=== PATIENT | female | born 1935 | race Caucasian/White ===

== ENCOUNTER → 2016-10-03 | Outpatient (CLI) | payer MEDICARE, BC ==
[~2016-10-03] MED LIST: ACET325S8 PO; ALIG4CAP PO; ATEN1TAB73 PO; ATEN25TA PO; CALC0.25 PO; CALC600T34 PO; COUM5TAB PO; FURO20 PO; FURO20TA PO; HYDR-3533 PO; LEVO100T4 PO; LEVO112T2 PO; LISI-363 PO; LISI-515 PO; MIRA0.5T PO; OMEG100037 PO; OMEP20TA PO; OMEP40CA2 PO; ONETAB13 PO; PERI8.6T PO; POTA-53 PO; POTA1TAB PO; ULTR50TA PO; WARF7.5 PO; ZOCO80TA PO; [UNRECOGNIZED DRUG - OTHER] PO
[2016-10-03 09:14] LABS: HEMATOCRIT 41.5 % (35.0-46.0); MEAN CELL VOLUME 91.6 FL (80.0-100.0); MEAN CORPUSCULAR HEMOGLOBIN 30.3 PG (27.0-34.0); PLATELET COUNT 214 TH/MM3 (150-450); RED BLOOD COUNT 4.53 MIL/MM3 (4.00-5.30); RED CELL DISTRIBUTION WIDTH 13.7 % (11.6-17.2); REVIEW FLAG FINAL; WHITE BLOOD COUNT 5.8 TH/MM3 (4.0-11.0)
[2016-10-03 09:46] LABS: POTASSIUM 4.2 MEQ/L (3.5-5.1)
== END ==
LOC: PLAB 07:43
PROVIDERS: ATTEND Internal Medicine Cardiovascular Disease
DX: E78.5 Hyperlipidemia, unspecified (principal)
CPT/HCPCS: 36415; 80048; 85027

== ENCOUNTER → 2016-10-14 | Outpatient (CLI) | payer MEDICARE, BC ==
[2016-10-14 09:48] LABS: INTERNATIONAL NORMALIZED RATIO 3.2 RATIO; PROTHROMBIN TIME - PATIENT 36.7 SEC (9.8-11.6)
== END ==
LOC: PLAB 08-16 07:04
PROVIDERS: ATTEND Family Medicine
DX: I48.91 Unspecified atrial fibrillation (principal)
CPT/HCPCS: 36415; 85610

== ENCOUNTER → 2016-10-26 | Outpatient (CLI) | payer MEDICARE, BC ==
[2016-10-26 13:32] LABS: AUTOMATED NEUTROPHIL # 2.8 TH/MM3 (1.8-7.7); BASOPHIL # 0.1 TH/MM3 (0-0.2); BASOPHIL % 1.2 % (0.0-2.0); EOSINOPHIL # 0.1 TH/MM3 (0-0.4); EOSINOPHIL % 1.8 % (0.0-4.0); HEMATOCRIT 40.9 % (35.0-46.0); HEMO FLAGS DIFF FINAL; LYMPH % 41.9 % (9.0-44.0); LYMPHOCYTE # 2.5 TH/MM3 (1.0-4.8); MEAN CELL VOLUME 91.5 FL (80.0-100.0); MEAN CORPUSCULAR HEMOGLOBIN 31.1 PG (27.0-34.0); MEAN CORPUSCULAR HGB CONC 33.9 % (32.0-36.0); MONO % 8.4 % (0.0-8.0); NEUT % 46.7 % (16.0-70.0); PLATELET COUNT 265 TH/MM3 (150-450); RED BLOOD COUNT 4.47 MIL/MM3 (4.00-5.30); RED CELL DISTRIBUTION WIDTH 13.4 % (11.6-17.2)
== END ==
LOC: PLAB 07:49
PROVIDERS: ATTEND Family Medicine
DX: D64.9 Anemia, unspecified (principal)
CPT/HCPCS: 36415; 85025

== ENCOUNTER 2017-02-13 10:03 | Emergency (ER) | payer MEDICARE, BC ==
[~2017-02-13] VITALS: Ht 162.6 cm; Wt 116.0 kg
[~2017-02-13 10:03] MED LIST changes: -ATEN25TA PO; -FURO20TA PO; -HYDR-3533 PO; -LEVO112T2 PO; -LISI-515 PO; -OMEP20TA PO; -POTA-53 PO; -[UNRECOGNIZED DRUG - OTHER] PO
[2017-02-13 10:13] VITALS: BP 151/94; PULSE 70; RESP 17; TEMP 98.9; O2SAT 98
[2017-02-13] MEDS ORDERED: ALIG4CAP PO (10:25)
[2017-02-13] MEDS ORDERED: LISI-515 PO (10:25)
[2017-02-13] MEDS ORDERED: POTA-53 PO (10:25)
[2017-02-13] MEDS ORDERED: ZOCO80TA PO (10:25)
[2017-02-13] MEDS ORDERED: FURO20TA PO (10:25)
[2017-02-13] MEDS ORDERED: LEVO112T2 PO (10:25)
[2017-02-13] MEDS ORDERED: [UNRECOGNIZED DRUG - OTHER] PO (10:25)
[2017-02-13] MEDS ORDERED: OMEP20TA PO (10:25)
[2017-02-13] MEDS ORDERED: ATEN25TA PO (10:25)
[2017-02-13] MEDS ORDERED: ACETAMINOPHEN/HYDROcodone 325 MG/5 MG TAB PO ONE (10:30)
[2017-02-13] MEDS ORDERED: HYDR-3533 PO (11:27)
--- NOTE | 2017-02-13 11:29 | PD ---
HPI Chief Complaint: Fall Time Seen by Provider: 10:30 Travel History International Travel<30 days: No Contact w/Intl Traveler<30days: No Traveled to known affect area: No History of Present Illness HPI 81 -year-old female complains of left foot pain after falling accidentally today. She struck the dorsal aspect of the left foot on hard ground. She has had pain and swelling and redness since. The pain is constant. It's worse with ambulation and palpation. She also complains of right lower back pain. She has had it for about 1 week. Since the fall it has become worse, Evidently very uncomfortable. She has suffered with back pain previously. A CT scan of the abdomen and pelvis has been performed within the last 2 years showing no aneurysm. She was also seen here about a year ago for the same back pain and imaging at that time was negative. She's had no overflow urinary incontinence. She's had no fever. No saddle anesthesia or perineal/perianal sensory loss reported. No weakness in the lower extremities. PFSH Past Medical History Arthritis: Yes Atrial Fibrillation: Yes Cardiovascular Problems: No High Cholesterol: Yes Diabetes: No Diminished Hearing: No GERD: Yes Glaucoma: Yes Hepatitis: No Hiatal Hernia: No Hypertension: Yes Respiratory: No Immunizations Current: Yes Thyroid Disease: Yes PNEUMOCCOCAL Vaccine (Year): 1 ?: Not Menopausal: Yes Past Surgical History Abdominal Surgery: Yes (APPENDECTOPMY) Appendectomy: Yes Cardiac Surgery: No Cholecystectomy: Yes Ear Surgery: No Endocrine Surgery: No Eye Surgery: Yes (BILATERAL CATARACT SURGERY) Genitourinary Surgery: No Gynecologic Surgery: Yes (HYSTECTOMY) Hysterectomy: Yes Neurologic Surgery: No Oral Surgery: Yes (TONSILECTOMY) Thoracic Surgery: No Tonsillectomy: Yes Other Surgery: Yes Social History Alcohol Use: No Tobacco Use: No Substance Use: No Allergies-Medications (Allergen,Severity, Reaction): Coded Allergies: No Known Allergies (Verified , 02/13/17) Reported Meds & Prescriptions Reported Meds & Active Scripts Active Lortab (Hydrocodone-Acetaminophen) 5-325 Mg Tab 1-2 Tab PO Q6H PRN Reported Potassium Chloride 1 Pow Pow 20 Meq PO DAILY Zocor (Simvastatin) 80 Mg Tab 80 Mg PO DAILY Lisinopril 20 Mg Tab 20 Mg PO DAILY Furosemide 20 Mg Tab 20 Mg PO DAILY [Calfitrial] 0.25 Mg PO M-F Omeprazole 20 Mg Tab 20 Mg PO DAILY Align (Lactobacillus Rhamnosus (GG)) 4 Mg Cap 4 Mg PO DAILY Levothyroxine (Levothyroxine Sodium) 112 Mcg Tab 112 Mcg PO DAILY Atenolol 25 Mg Tab 25 Mg PO DAILY Review of Systems General / Constitutional: No: Fever, Chills Gastrointestinal: No: Nausea, Vomiting, Abdominal Pain Musculoskeletal: Positive: Pain, No: Weakness Physical Exam Narrative GENERAL: 81 yo F, WNWD SKIN: Warm and dry. HEAD: Normocephalic. EYES: No scleral icterus. No injection or drainage. NECK: Supple, trachea midline. No JVD or lymphadenopathy. CARDIOVASCULAR: Regular rate and rhythm without murmurs, gallops, or rubs. RESPIRATORY: Breath sounds equal bilaterally. No accessory muscle use. GASTROINTESTINAL: Abdomen soft, non-tender, nondistended. MUSCULOSKELETAL: No cyanosis, or edema. Erythema/swelling/tenderness about dorsal of L foot predominantly involving L hallux w exquisite TTP about the area. 2+ DP bilaterally. NEURO: Hip flexion normal bilaterally. Knee flexion intact bilaterally. Ankle flexion/extension intact bilaterally. Normal memory/mentation/speech. No CN deficit. BACK: Nontender without obvious deformity. No focal spinal TTP. TTP R iliac crest. Data Data Last Documented VS Vital Signs Date Time Temp Pulse Resp B/P Pulse Ox O2 Delivery O2 Flow Rate FiO2 02/13/17 10:13 98.9 70 17 151/94 98 VS reviewed Orders Acetamin-Hydrocod 325-5 Mg ([place] 5-325 (02/13/17 10:30) Foot, Complete ([id number]) (02/13/17 10:30) Ice/Cold Pack (02/13/17 10:30) Splint Or Brace Apply/Monitor (02/13/17 10:30) Spine, Lumbar - Ltd (Ap & Lat) (02/13/17 ) MDM Medical Decision Making Medical Screen Exam Complete: Yes Emergency Medical Condition: Yes Medical Record Reviewed: Yes Differential Diagnosis Vertebral body fracture, AAA, iliac artery aneurysm, myofascial strain, sciatica , foot fracture, gout, spinal stenosis, radiculopathy Narrative Course Last 24 hours Impressions Foot X-Ray 02/13/17 1030 Signed Impressions: Service Date/Time: Monday, February 13, 2017 11:20 - CONCLUSION: No acute abnormality is identified. Hernán Adame MD Lumbar Spine X-Ray 02/13/17 0000 Signed Impressions: Service Date/Time: Monday, February 13, 2017 11:27 - CONCLUSION: No acute lumbar spine abnormality is identified. There is stable mild levoscoliosis and degenerative disc disease at all levels. Hernán Adame MD Hard sole shoe. Pain controlled. Follow up with podiatry and primary care. Diagnosis Primary Impression: Low back pain Qualified Code: M54.5 - Chronic right-sided low back pain without sciatica Additional Impression: Injury, foot Qualified Code: S99.922A - Injury, foot, left, initial encounter Referrals: DR BALL 2 days Angelica Mcintyre DPM 2 days Additional Instructions: You have a choice when it comes to health care, and we are glad that you chose [facility]. Hopefully, we have met your expectations on today's visit. You are welcome to return to [facility] at any time, as we are committed to meeting the health care needs of our community. Med/Other Pt SpecificInfo: Prescription(s) given Scripts Hydrocodone-Acetaminophen (Lortab)5-325 Mg Tab1-2 Tab PO Q6H PRN (PAIN SCALE 6 TO 10) #10 TAB Ref 0 Prov:Venkat Barber MD 02/13/17 Disposition: 01 DISCHARGE HOME Condition: Stable Venkat Barber MD February 13, 2017 11:29
--- NOTE | 2017-02-13 12:14 | RADHPO ---
EXAM DATE/TIME: 02/13/2017 11:20 [facility] COMPARISON: No previous studies available for comparison. INDICATIONS : Foot pain. MEDICAL HISTORY : None. SURGICAL HISTORY : None. ENCOUNTER: Initial ACUITY: 1 day PAIN SCORE: 6/10 LOCATION: Left Foot FINDINGS: Three views of the left foot demonstrate no fracture or dislocation. The Lisfranc joint appears intac t. Mineralization is within normal limits and there is no significant arthropathy. No soft tissue abn ormality or radiopaque foreign body is identified. There are enthesophytes on the calcaneus. CONCLUSION: No acute abnormality is identified. Hernán Adame MD on February 13, 2017 at 12:12 Board Certified Radiologist. This report was verified electronically.
--- NOTE | 2017-02-13 12:15 | RADHPO ---
EXAM DATE/TIME: 02/13/2017 11:27 [facility] COMPARISON: SPINE LUMBAR LTD (AP & LAT), January 13, 2016, 10:21. INDICATIONS : Back pain. MEDICAL HISTORY : None. SURGICAL HISTORY : None. ENCOUNTER: Initial ACUITY: 1 day PAIN SCORE: 6/10 LOCATION: Bilateral Lower back. FINDINGS: 3 views of the lumbar spine demonstrate 5 nonrib-bearing lumbar vertebral bodies with mild leftward c onvex curvature. There is decreased disc height at all levels with endplate osteophytes. There is fac et hypertrophy at L4-L5 and L5-S1. No fracture or compression deformity is present. There is no anter olisthesis or retrolisthesis. Visualized surrounding structures demonstrate no acute finding. CONCLUSION: No acute lumbar spine abnormality is identified. There is stable mild levoscoliosis and degenerative disc disease at all levels. Hernán Adame MD on February 13, 2017 at 12:13 Board Certified Radiologist. This report was verified electronically.
[2017-02-14] MEDS ORDERED: CALC0.25 PO (10:45)
== END 2017-02-13 13:16 | disposition home or self-care (01) ==
LOC: PHEFT 10:03
DX: M54.5 Low back pain (principal); S99.922A Unspecified injury of left foot, initial encounter; M41.80 Other forms of scoliosis, site unspecified; I48.91 Unspecified atrial fibrillation; M19.90 Unspecified osteoarthritis, unspecified site; K21.9 Gastro-esophageal reflux disease without esophagitis; I10 Essential (primary) hypertension; E07.9 Disorder of thyroid, unspecified; W19.XXXA Unspecified fall, initial encounter
CPT/HCPCS: 72100; 73630; 99283; L3260

== ENCOUNTER 2017-03-28 11:47 | Observation (INO) | payer MEDICARE, BC ==
[2017-03-28] VITALS (7 sets, daily range): BP systolic 118–175; BP diastolic 67–81; PULSE 53–73; RESP 16–18; TEMP 97–98.1; O2SAT 95–99
[~2017-03-28] VITALS: Ht 162.6 cm; Wt 100.7 kg
[~2017-03-28 11:47] MED LIST changes: -ACET325S8 PO; -ATEN1TAB73 PO; +ATEN25TA PO; -CALC600T34 PO; -COUM5TAB PO; -FURO20 PO; +FURO20TA PO; +HYDR-3533 PO; -LEVO100T4 PO; +LEVO112T2 PO; -LISI-363 PO; +LISI-515 PO; -MIRA0.5T PO; -OMEG100037 PO; +OMEP20TA PO; -OMEP40CA2 PO; -ONETAB13 PO; -PERI8.6T PO; +POTA-53 PO; -POTA1TAB PO; -ULTR50TA PO; -WARF7.5 PO
[2017-03-28] MEDS ORDERED: ASPIRIN 81 MG CHEW TAB PO ONE (12:00)
[2017-03-28] MEDS ORDERED: SODIUM CHLORIDE 0.9% FLUSH 10 ML FLUSH IVF PRN (12:00)
[2017-03-28] MEDS ORDERED: NITROGLYCERIN 2% OINT 1 GM PACKET TOPICAL ONE (12:00)
--- NOTE | 2017-03-28 12:07 | PD ---
HPI Chief Complaint: Chest Pain Time Seen by Provider: 11:51 Travel History International Travel<30 days: No Contact w/Intl Traveler<30days: No Traveled to known affect area: No History of Present Illness HPI C/O SUBSTERNAL CP, PRESSURE, RAD TO LEFT SHOULDER, 05/28 CURRENTLY, PCP IS DR ALBARO BALL AND CARDIO IS DR TSAI...CURRENTLY OFF COUMADIN FOR NEXT 2 DAYS BECAUSE INR WAS TOO HIGH ON ROUTINE CHECK. PFSH Past Medical History Arthritis: Yes Atrial Fibrillation: Yes Cardiovascular Problems: No High Cholesterol: Yes Diabetes: No Diminished Hearing: No GERD: Yes Glaucoma: Yes Hepatitis: No Hiatal Hernia: No Hypertension: Yes Respiratory: No Immunizations Current: Yes Thyroid Disease: Yes PNEUMOCCOCAL Vaccine (Year): 1 Menopausal: Yes Past Surgical History Abdominal Surgery: Yes (APPENDECTOPMY) Appendectomy: Yes Cardiac Surgery: No Cholecystectomy: Yes Ear Surgery: No Endocrine Surgery: No Eye Surgery: Yes (BILATERAL CATARACT SURGERY) Genitourinary Surgery: No Gynecologic Surgery: Yes (HYSTECTOMY) Hysterectomy: Yes Neurologic Surgery: No Oral Surgery: Yes (TONSILECTOMY) Thoracic Surgery: No Tonsillectomy: Yes Other Surgery: Yes Social History Alcohol Use: No Tobacco Use: No Substance Use: No Allergies-Medications (Allergen,Severity, Reaction): Coded Allergies: No Known Allergies (Verified , 03/28/17) Reported Meds & Prescriptions Reported Meds & Active Scripts Active Lortab (Hydrocodone-Acetaminophen) 5-325 Mg Tab 1-2 Tab PO Q6H PRN Reported [place]-3 Fish Oil/Vitamin (Fish Oil-Cholecalciferol) 1,000-1,000 Mg Cap 3 Cap PO DAILY Calcium 600 with Vitamin D (Calcium Carbonate-Cholecalciferol) 600-400 mg-Unit Tab 1 Tab PO DAILY Multiple Vitamin 1 Tab 1 Tab PO DAILY Warfarin 2.5 Mg Tab 2.5 Mg PO DAILY Warfarin 5 Mg Tab 5 Mg PO DAILY Calcitriol 0.25 Mcg Cap 0.25 Mcg PO MOTUWETHFR Take 1 capsule (0.25mg) daily Monday through Monday Potassium Chloride 1 Pow Pow 20 Meq PO DAILY Zocor (Simvastatin) 80 Mg Tab 80 Mg PO DAILY Lisinopril 20 Mg Tab 20 Mg PO DAILY Furosemide 20 Mg Tab 20 Mg PO DAILY Omeprazole 20 Mg Tab 20 Mg PO DAILY Align (Lactobacillus Rhamnosus (GG)) 4 Mg Cap 4 Mg PO DAILY Levothyroxine (Levothyroxine Sodium) 112 Mcg Tab 112 Mcg PO DAILY Atenolol 25 Mg Tab 25 Mg PO DAILY Review of Systems Except as stated in HPI: all other systems reviewed are Neg Cardiovascular: Positive: Chest Pain or Discomfort Gastrointestinal: Positive: Nausea Physical Exam Narrative GENERAL: SKIN: Warm and dry. HEAD: Atraumatic. Normocephalic. EYES: Pupils equal and round. No scleral icterus. No injection or drainage. ENT: No nasal bleeding or discharge. Mucous membranes pink and moist. NECK: Trachea midline. No JVD. CARDIOVASCULAR: IRRegular rate and rhythm. RESPIRATORY: No accessory muscle use. Clear to auscultation. Breath sounds equal bilaterally. GASTROINTESTINAL: Abdomen soft, non-tender, nondistended. Hepatic and splenic margins not palpable. MUSCULOSKELETAL: Extremities without clubbing, cyanosis, or edema. No obvious deformities. NEUROLOGICAL: Awake and alert. No obvious cranial nerve deficits. Motor grossly within normal limits. Five out of 5 muscle strength in the arms and legs. Normal speech. PSYCHIATRIC: Appropriate mood and affect; insight and judgment normal. Data Data Last Documented VS Vital Signs Date Time Temp Pulse Resp B/P Pulse Ox O2 Delivery O2 Flow Rate FiO2 03/28/17 12:28 60 16 175/81 95 121/71 03/28/17 11:51 Room Air 03/28/17 11:51 98.1 Orders Electrocardiogram (03/28/17 11:52) B-Type Natriuretic Peptide (03/28/17 11:52) Ckmb (Isoenzyme) Profile (03/28/17 11:52) Complete Blood Count With Diff (03/28/17 11:52) Comprehensive Metabolic Panel (03/28/17 11:52) Prothrombin Time / Inr (Pt) (03/28/17 11:52) Act Partial Throm Time (Ptt) (03/28/17 11:52) Troponin I (03/28/17 11:52) Chest, Single Ap (03/28/17 11:52) Ecg Monitoring (03/28/17 11:52) Bilateral Bp Monitoring (03/28/17 11:52) Iv Access Insert/Monitor (03/28/17 11:52) Oximetry (03/28/17 11:52) Aspirin Chew (Aspirin Chew) (03/28/17 12:00) Sodium Chloride 0.9% Flush (Ns Flush) (03/28/17 12:00) Nitroglycerin 2% Oint (Nitroglycerin 2% (03/28/17 12:00) Shoulder, Limited(2vws) (03/28/17 ) Admit Order (Ed Use Only) (03/28/17 13:04) Labs Laboratory Tests Test 03/28/17 12:00 White Blood Count 7.5 TH/MM3 Red Blood Count 4.70 MIL/MM3 Hemoglobin 14.3 GM/DL Hematocrit 42.5 % Mean Corpuscular Volume 90.3 FL Mean Corpuscular Hemoglobin 30.4 PG Mean Corpuscular Hemoglobin 33.6 % Concent Red Cell Distribution Width 13.3 % Platelet Count 265 TH/MM3 Mean Platelet Volume 8.9 FL Neutrophils (%) (Auto) 57.0 % Lymphocytes (%) (Auto) 32.6 % Monocytes (%) (Auto) 7.2 % Eosinophils (%) (Auto) 1.9 % Basophils (%) (Auto) 1.3 % Neutrophils # (Auto) 4.4 TH/MM3 Lymphocytes # (Auto) 2.4 TH/MM3 Monocytes # (Auto) 0.5 TH/MM3 Eosinophils # (Auto) 0.1 TH/MM3 Basophils # (Auto) 0.1 TH/MM3 CBC Comment DIFF FINAL Differential Comment Prothrombin Time 74.8 SEC Prothromb Time International 6.2 RATIO Ratio Activated Partial 75.9 SEC Thromboplast Time Sodium Level 140 MEQ/L Potassium Level 4.5 MEQ/L Chloride Level 104 MEQ/L Carbon Dioxide Level 27.1 MEQ/L Anion Gap 9 MEQ/L Blood Urea Nitrogen 24 MG/DL Creatinine 1.90 MG/DL Estimat Glomerular Filtration 26 ML/MIN Rate Random Glucose 100 MG/DL Calcium Level 9.6 MG/DL Total Bilirubin 0.5 MG/DL Aspartate Amino Transf 42 U/L (AST/SGOT) Alanine Aminotransferase 21 U/L (ALT/SGPT) Alkaline Phosphatase 59 U/L Total Creatine Kinase 86 U/L Troponin I LESS THAN 0.02 NG/ML B-Type Natriuretic Peptide 154 PG/ML Total Protein 8.2 GM/DL Albumin 3.8 GM/DL MDM Medical Decision Making Medical Screen Exam Complete: Yes Emergency Medical Condition: Yes Medical Record Reviewed: Yes Interpretation(s) CINDY WITH CVR, NO STEMI PATTERN NOTED, NONSPEC STT CHANGES Differential Diagnosis PNA V PULM EDEMA V TX V NONSTEMI Narrative Course PT EVALUATED, CP RESOLVED WITH NTG PASTE, SUPRATHERAPEUTIC ON COUMADIN SO WILL NOT ANTICOAGULATE MUCH FURTHER THAN ASA, WILL ADMIT R/O TX Diagnosis Primary Impression: CP R/O TX Admitting Information Admitting Physician Requests: Observation Lisandro Arnold MD Mar 28, 2017 12:07
[2017-03-28 12:27] LABS: CHLORIDE 104 MEQ/L (98-107); POTASSIUM 4.5 MEQ/L (3.5-5.1); SODIUM (NA) 140 MEQ/L (136-145)
[2017-03-28 12:32] LABS: ANION GAP 9 MEQ/L (5-15); BICARBONATE 27.1 MEQ/L (21.0-32.0); BLOOD UREA NITROGEN 24 MG/DL (7-18)
[2017-03-28 12:35] LABS: ALT (GPT) 21 U/L (10-53); AST (GOT) 42 U/L (15-37); GLOMERULAR FILTRATION RATE 26 ML/MIN (>89)
[2017-03-28 12:37] LABS: TOTAL BILIRUBIN ADULT 0.5 MG/DL (0.2-1.0)
[2017-03-28 12:38] LABS: ALKALINE PHOSPHATASE 59 U/L (45-117)
[2017-03-28 12:39] LABS: AUTOMATED NEUTROPHIL # 4.4 TH/MM3 (1.8-7.7); BASOPHIL # 0.1 TH/MM3 (0-0.2); BASOPHIL % 1.3 % (0.0-2.0); EOSINOPHIL # 0.1 TH/MM3 (0-0.4); EOSINOPHIL % 1.9 % (0.0-4.0); HEMATOCRIT 42.5 % (35.0-46.0); HEMO FLAGS DIFF FINAL; LYMPH % 32.6 % (9.0-44.0); LYMPHOCYTE # 2.4 TH/MM3 (1.0-4.8); MEAN CELL VOLUME 90.3 FL (80.0-100.0); MEAN CORPUSCULAR HEMOGLOBIN 30.4 PG (27.0-34.0); MEAN CORPUSCULAR HGB CONC 33.6 % (32.0-36.0); MONO % 7.2 % (0.0-8.0); PLATELET COUNT 265 TH/MM3 (150-450); RED CELL DISTRIBUTION WIDTH 13.3 % (11.6-17.2); WHITE BLOOD COUNT 7.5 TH/MM3 (4.0-11.0)
[2017-03-28 12:41] LABS: CREATINE KINASE 86 U/L (26-192)
--- NOTE | 2017-03-28 12:54 | RADRPT ---
EXAM DATE/TIME: 03/28/2017 12:31 [facility] COMPARISON: SPINE LUMBAR LTD (AP & LAT), February 13, 2017, 11:27. INDICATIONS : Chest pain since yesterday. MEDICAL HISTORY : Hypertension. Hypercholesterolemia. Arthritis. GERD. Atrial fibrillation. SURGICAL HISTORY : Hysterectomy. Cholecystectomy. Appendectomy. ENCOUNTER: Initial ACUITY: 2 days PAIN SCORE: 5/10 LOCATION: Bilateral chest FINDINGS: A single view of the chest demonstrates the lungs to be symmetrically aerated without evidence of mas s, infiltrate or effusion. The cardiomediastinal contours are unremarkable. Osseous structures are intact. CONCLUSION: 1. No acute cardiopulmonary findings. Venkat Hernandez MD on March 28, 2017 at 12:50 Board Certified Radiologist. This report was verified electronically.
[2017-03-28 12:57] LABS: APTT (PATIENT) 75.9 SEC (24.3-30.1); PROTHROMBIN TIME - PATIENT 74.8 SEC (9.8-11.6)
[2017-03-28 12:59] LABS: INTERNATIONAL NORMALIZED RATIO 6.2 RATIO
--- NOTE | 2017-03-28 13:04 | RADRPT ---
EXAM DATE/TIME: 03/28/2017 12:35 [facility] COMPARISON: CHEST SINGLE AP, March 28, 2017, 12:31. INDICATIONS : Left shoulder pain since yesterday. No known injury. MEDICAL HISTORY : Hypertension. Hypercholesterolemia. Arthritis. GERD. Atrial fibrillation. SURGICAL HISTORY : Hysterectomy. Cholecystectomy. Appendectomy. ENCOUNTER: Initial ACUITY: 2 days PAIN SCORE: 8/10 LOCATION: Left shoulder. FINDINGS: Two view examination of the left shoulder demonstrates no evidence of fracture or dislocation. The g lenohumeral and acromioclavicular joints are maintained. Bony mineralization is normal.CONCLUSION: 1. No acute bony abnormality. Venkat Hernandez MD on March 28, 2017 at 12:55 Board Certified Radiologist. This report was verified electronically.
[2017-03-28] MEDS ORDERED: WARF-18 PO (13:43)
[2017-03-28] MEDS ORDERED: WARF-23 PO (13:43)
[2017-03-28] MEDS ORDERED: ENOXAPARIN SODIUM 40 MG/0.4 ML SYRINGE SQ SCH (13:45)
[2017-03-28] MEDS ORDERED: MULTTAB67 PO (13:45)
[2017-03-28] MEDS ORDERED: CALC1TAB87 PO (13:45)
[2017-03-28] MEDS ORDERED: LACTULOSE SYRUP 20 GM/30 ML CUP PO PRN (13:45)
[2017-03-28] MEDS ORDERED: BISACODYL 10 MG SUPP RECTAL PRN (13:45)
[2017-03-28] MEDS ORDERED: OMEGCAP PO (13:45)
[2017-03-28] MEDS ORDERED: SODIUM CHLORIDE 0.9% FLUSH 10 ML FLUSH IV FLUSH PRN (13:45)
[2017-03-28] MEDS ORDERED: ACETAMINOPHEN 325 MG TAB PO PRN (14:00)
[2017-03-28] MEDS ORDERED: MAGNESIUM HYDROXIDE SUSP 30 ML CUP PO PRN (15:00)
[2017-03-28] MEDS ORDERED: ONDANSETRON HCL 4 MG/2 ML VIAL IVP PRN (15:00)
[2017-03-28] MEDS ORDERED: SENNOSIDES 8.6 MG TAB PO PRN (15:00)
[2017-03-28] MEDS: SODIUM CHLOR 0.9% 1000 ML INJ 1,000 ML IV SCH (15:03)
[2017-03-28] MEDS ORDERED: ACETAMINOPHEN/HYDROcodone 325 MG/5 MG TAB PO PRN (15:15)
[2017-03-28] MEDS: NITROGLYCERIN 2% OINT 1 GM PACKET TOPICAL SCH (17:40)
--- NOTE | 2017-03-28 19:16 | HHI.HP ---
[facility] Nano Thurman M.D. Admission Diagnosis CP R/O DC Diagnoses: Chief Complaint: Chest pain Travel History International Travel<30 Days: No Contact w/Intl Traveler <30 Da: No Traveled to Known Affected Are: No History of Present Illness The patient is a very pleasant 81-year-old female with past medical history of hypertension, hypothyroidism, hyperlipidemia, A. fib who came to the emergency room with complaints of of sternal chest pain pressure-like moderate to severe, radiating to the left shoulder, not up to 10 intensity on admission. She also has associated shortness of breath with exertion. No palpitations, no associated diaphoresis or nausea. No vomiting, diarrhea or constipation. No fever or chills. No cough. No urinary complaints no abdominal pain. Denies lower extremity edema. Review of Systems Except as stated in HPI: all other systems reviewed are Neg Past Family Social History Past Medical History Hypertension, hypothyroidism, hyperlipidemia, A. fib Past Surgical History Appendectomy, bilateral cataract surgery, hysterectomy, tonsillectomy, cholecystectomy Reported Medications Reported Meds & Active Scripts Active Lortab (Hydrocodone-Acetaminophen) 5-325 Mg Tab 1-2 Tab PO Q6H PRN Reported [place]-3 Fish Oil/Vitamin (Fish Oil-Cholecalciferol) 1,000-1,000 Mg Cap 3 Cap PO DAILY Calcium 600 with Vitamin D (Calcium Carbonate-Cholecalciferol) 600-400 mg-Unit Tab 1 Tab PO DAILY Multiple Vitamin 1 Tab 1 Tab PO DAILY Warfarin 2.5 Mg Tab 2.5 Mg PO DAILY Warfarin 5 Mg Tab 5 Mg PO DAILY Calcitriol 0.25 Mcg Cap 0.25 Mcg PO MOTUWETHFR Take 1 capsule (0.25mg) daily Monday through Monday Potassium Chloride 1 Pow Pow 20 Meq PO DAILY Zocor (Simvastatin) 80 Mg Tab 80 Mg PO DAILY Lisinopril 20 Mg Tab 20 Mg PO DAILY Furosemide 20 Mg Tab 20 Mg PO DAILY Omeprazole 20 Mg Tab 20 Mg PO DAILY Align (Lactobacillus Rhamnosus (GG)) 4 Mg Cap 4 Mg PO DAILY Levothyroxine (Levothyroxine Sodium) 112 Mcg Tab 112 Mcg PO DAILY Atenolol 25 Mg Tab 25 Mg PO DAILY Allergies: Coded Allergies: No Known Allergies (Verified , 03/28/17) Family History Mother had DC at a young age. Father also with DC at young age ~50 2 brothers with cancer Social History Denies tobacco use, alcohol use or illicit drug use. Physical Exam Vital Signs Vital Signs Date Time Temp Pulse Resp B/P Pulse Ox O2 Delivery O2 Flow Rate FiO2 03/28/17 18:44 18 03/28/17 17:30 56 16 118/67 96 03/28/17 14:30 60 16 137/80 97 03/28/17 13:47 53 16 121/71 96 03/28/17 12:28 60 16 175/81 95 121/71 03/28/17 11:51 73 16 99 Room Air 03/28/17 11:51 98.1 73 16 175/81 99 Physical Exam GENERAL: This is a very pleasant 81 yo F, well-nourished, well-developed patient, in no apparent distress. SKIN: No rashes, ecchymoses or lesions. Cool and dry. HEAD: Atraumatic. Normocephalic. No temporal or scalp tenderness. EYES: Pupils equal round and reactive. Extraocular motions intact. No scleral icterus. No injection or drainage. ENT: Nose without bleeding, purulent drainage or septal hematoma. Throat without erythema, tonsillar hypertrophy or exudate. Uvula midline. Airway patent. NECK: Trachea midline. No JVD or lymphadenopathy. Supple, nontender, no meningeal signs. CARDIOVASCULAR: Regular rate and rhythm without murmurs, gallops, or rubs. RESPIRATORY: Clear to auscultation. Breath sounds equal bilaterally. No wheezes , rales, or rhonchi. GASTROINTESTINAL: Abdomen soft, non-tender, nondistended. No hepato-splenomegaly , or palpable masses. No guarding. MUSCULOSKELETAL: Extremities without clubbing, cyanosis, or edema. No joint tenderness, effusion, or edema noted. No calf tenderness. Negative Homans sign bilaterally. NEUROLOGICAL: Awake and alert. Cranial nerves II through XII intact. Motor and sensory grossly within normal limits. Normal speech. Laboratory Laboratory Tests Test 03/28/17 03/28/17 03/28/17 12:00 15:00 18:00 White Blood Count 7.5 Red Blood Count 4.70 Hemoglobin 14.3 Hematocrit 42.5 Mean Corpuscular Volume 90.3 Mean Corpuscular Hemoglobin 30.4 Mean Corpuscular Hemoglobin 33.6 Concent Red Cell Distribution Width 13.3 Platelet Count 265 Mean Platelet Volume 8.9 Neutrophils (%) (Auto) 57.0 Lymphocytes (%) (Auto) 32.6 Monocytes (%) (Auto) 7.2 Eosinophils (%) (Auto) 1.9 Basophils (%) (Auto) 1.3 Neutrophils # (Auto) 4.4 Lymphocytes # (Auto) 2.4 Monocytes # (Auto) 0.5 Eosinophils # (Auto) 0.1 Basophils # (Auto) 0.1 CBC Comment DIFF FINAL Differential Comment Prothrombin Time 74.8 Prothromb Time International 6.2 Ratio Activated Partial 75.9 Thromboplast Time Sodium Level 140 Potassium Level 4.5 Chloride Level 104 Carbon Dioxide Level 27.1 Anion Gap 9 Blood Urea Nitrogen 24 Creatinine 1.90 Estimat Glomerular Filtration 26 Rate Random Glucose 100 Calcium Level 9.6 Total Bilirubin 0.5 Aspartate Amino Transf 42 (AST/SGOT) Alanine Aminotransferase 21 (ALT/SGPT) Alkaline Phosphatase 59 Total Creatine Kinase 86 Troponin I LESS THAN 0.02 LESS THAN 0.02 LESS THAN 0.02 B-Type Natriuretic Peptide 154 Total Protein 8.2 Albumin 3.8 Result Diagram: 03/28/17 1200 03/28/17 1200 Imaging Last Impressions Chest X-Ray 03/28/17 1152 Signed Impressions: Service Date/Time: Tuesday, March 28, 2017 12:31 - CONCLUSION: 1. No acute cardiopulmonary findings. Venkat Hernandez MD Shoulder X-Ray 03/28/17 0000 Signed Impressions: Service Date/Time: Tuesday, March 28, 2017 12:35 - CONCLUSION: 1. No acute bony abnormality. Venkat Hernandez MD Assessment and Plan Assessment and Plan 81-year-old female with Chest pain rule out DC Was troponin negative. EKG without changes. Trend troponins and repeat EKG Patient follows with Dr. Ashley cardio, will consult him for recommendations Pain is relieved with Nitropaste. Continue Nitropaste every 6 hours Monitor on telemetry Restart home medications MUNIR on CKD. [id number] kidney function . Gentle hydration . Hold Lasix and lisinopril. Monitor kidney function closely Supratherapeutic INR 6.3 on admission. The patient is not bleeding. Monitor INR. Hold Coumadin. Persistent A. fib rate control as this time. Monitor on telemetry. Restart home medications. ? CHF systolic on Lasix. Doesn't appear in exacerbation at this time. Restart home medications. Monitor blood pressure. Monitor electrolytes and kidney , hold Lasix and lisinopril GERD restart PPI Hypothyroidism restart 12 MCG by mouth daily of Synthroid. DVT prophylaxis. Chemotherapy prophylaxis contraindicated at this time agreed to supratherapeutic INR Lucy Morales MD Mar 28, 2017 19:16
[2017-03-28] MEDS: SODIUM CHLORIDE 0.9% FLUSH 10 ML FLUSH IV FLUSH SCH ×2 (20:43→20:45)
[2017-03-28] MEDS: DOCUSATE SODIUM 50 MG/SENNA 8.6 MG TAB PO SCH (20:43)
--- NOTE | 2017-03-28 21:41 | EKG ---
Date Performed: 03/28/2017 Time Performed: 18:03:59 PTAGE: 81 years EKG: ATRIAL FIBRILLATION MARKED LEFT AXIS DEVIATION LOW QRS VOLTAGE IN PRECORDIAL LEADS INCOMPLE TE RIGHT BUNDLE BRANCH BLOCK POSSIBLE ANTERIOR MYOCARDIAL INFARCTION ABNORMAL ECG PREVIOUS TRACING : 03/28/2017 15.45 Compared to prior tracing no significant change DOCTOR: Peter Valenzuela Interpretating Date/Time 03/28/2017 21:40:24
--- NOTE | 2017-03-28 21:57 | EKG ---
Date Performed: 03/28/2017 Time Performed: 15:45:28 PTAGE: 81 years EKG: ATRIAL FIBRILLATION WITH SLOW VENTRICULAR RESPONSE LOW QRS VOLTAGE IN PRECORDIAL LEADS INCO MPLETE RIGHT BUNDLE BRANCH BLOCK POSSIBLE ANTERIOR MYOCARDIAL INFARCTION ABNORMAL RHYTHM ECG PREVIOUS TRACING : 03/05/2014 10.19 Compared to prior tracing no significant change DOCTOR: Peter Valenzuela Interpretating Date/Time 03/28/2017 21:55:48
[2017-03-29] VITALS: BP 136/73; PULSE 61; RESP 18; TEMP 95.8; O2SAT 98
[2017-03-29] MEDS: NITROGLYCERIN 2% OINT 1 GM PACKET TOPICAL SCH ×2 (00:10→06:01)
[2017-03-29 04:00] VITALS: BP 137/88; PULSE 63; RESP 18; TEMP 95.7; O2SAT 97
[2017-03-29] MEDS ORDERED: LEVOTHYROXINE SODIUM 112 MCG TAB PO SCH (06:00)
[2017-03-29 06:47] LABS: AUTOMATED NEUTROPHIL # 3.2 TH/MM3 (1.8-7.7); BASOPHIL # 0.1 TH/MM3 (0-0.2); BASOPHIL % 1.7 % (0.0-2.0); EOSINOPHIL # 0.2 TH/MM3 (0-0.4); EOSINOPHIL % 2.8 % (0.0-4.0); HEMO FLAGS DIFF FINAL; LYMPH % 36.5 % (9.0-44.0); LYMPHOCYTE # 2.3 TH/MM3 (1.0-4.8); MEAN CELL VOLUME 91.4 FL (80.0-100.0); MEAN CORPUSCULAR HEMOGLOBIN 30.3 PG (27.0-34.0); MEAN CORPUSCULAR HGB CONC 33.2 % (32.0-36.0); MONO % 8.2 % (0.0-8.0); NEUT % 50.8 % (16.0-70.0); PLATELET COUNT 224 TH/MM3 (150-450); RED BLOOD COUNT 4.27 MIL/MM3 (4.00-5.30); RED CELL DISTRIBUTION WIDTH 13.5 % (11.6-17.2); WHITE BLOOD COUNT 6.3 TH/MM3 (4.0-11.0)
[2017-03-29 06:48] LABS: CHLORIDE 106 MEQ/L (98-107); POTASSIUM 4.2 MEQ/L (3.5-5.1); SODIUM (NA) 141 MEQ/L (136-145)
[2017-03-29 06:50] LABS: INTERNATIONAL NORMALIZED RATIO 5.8 RATIO; PROTHROMBIN TIME - PATIENT 69.6 SEC (9.8-11.6)
[2017-03-29 06:57] LABS: ANION GAP 9 MEQ/L (5-15); BLOOD UREA NITROGEN 22 MG/DL (7-18); MAGNESIUM 1.7 MG/DL (1.5-2.5)
[2017-03-29 07:00] LABS: ALT (GPT) 17 U/L (10-53); AST (GOT) 36 U/L (15-37)
[2017-03-29 07:01] LABS: GLOMERULAR FILTRATION RATE 33 ML/MIN (>89)
[2017-03-29 07:02] LABS: TOTAL BILIRUBIN ADULT 0.6 MG/DL (0.2-1.0)
[2017-03-29 07:03] LABS: ALKALINE PHOSPHATASE 53 U/L (45-117)
[2017-03-29 08:46] VITALS: BP 144/90; PULSE 63; RESP 18; TEMP 96.8; O2SAT 99
[2017-03-29] MEDS ORDERED: PANTOPRAZOLE SOD 20 MG DELAYED RELEASE TAB PO SCH (09:00)
[2017-03-29] MEDS ORDERED: PRAVASTATIN SOD 80 MG TAB PO SCH (09:00)
[2017-03-29] MEDS ORDERED: LISINOPRIL 20 MG TAB PO SCH (09:00)
[2017-03-29] MEDS ORDERED: FUROSEMIDE 20 MG TAB PO SCH (09:00)
[2017-03-29] MEDS ORDERED: POTASSIUM CHLORIDE 20 MEQ CONTROLLED RELEASE TAB PO SCH (09:00)
[2017-03-29] MEDS ORDERED: ASPIRIN 81 MG CHEW TAB CHEW SCH (09:00)
[2017-03-29] MEDS ORDERED: LACTOBACILLUS ACIDOPHILUS TAB PO SCH (09:00)
[2017-03-29] MEDS ORDERED: ATENOLOL 25 MG TAB PO SCH (09:00)
[2017-03-29] MEDS ORDERED: CALCITRIOL 0.25 MCG CAP PO SCH (09:00)
[2017-03-29 09:29] LABS: HDL CHOLESTEROL 39.7 MG/DL (40.0-60.0)
--- NOTE | 2017-03-29 10:20 | HHI.PR ---
Subjective Remarks Says chest pain has improved. However she has left shoulder pain and also neck pain. Patient says she fail a while ago and she might have injured her neck and or shoulder. She denies associated sob, n/v/d/c. Says she did not eat, she did not drink coffee. Says she was scheduled as OP for a stress test. Objective Vitals Vital Signs Date Time Temp Pulse Resp B/P Pulse Ox O2 Delivery O2 Flow Rate FiO2 03/29/17 08:46 96.8 63 18 144/90 99 03/29/17 04:00 95.7 63 18 137/88 97 03/29/17 00:00 95.8 61 18 136/73 98 03/28/17 20:20 63 03/28/17 20:00 97.0 60 18 147/78 99 03/28/17 18:44 18 03/28/17 17:30 56 16 118/67 96 03/28/17 14:30 60 16 137/80 97 03/28/17 13:47 53 16 121/71 96 03/28/17 12:28 60 16 175/81 95 121/71 03/28/17 11:51 73 16 99 Room Air 03/28/17 11:51 98.1 73 16 175/81 99 I/O 03/28/17 03/28/17 03/28/17 03/29/17 03/29/17 03/29/17 07:00 15:00 23:00 07:00 15:00 23:00 Intake Total 1180 ml 240 ml Output Total 400 ml Balance 780 ml 240 ml Intake Oral 980 ml 240 ml IV Total 200 ml Output Urine Total 400 ml # Voids 2 7 # Bowel Movements 0 0 Result Diagram: 03/29/17 0600 03/29/17 0600 Imaging Last Impressions Shoulder X-Ray 03/29/17 0000 Signed Impressions: Service Date/Time: Wednesday, March 29, 2017 13:00 - CONCLUSION: No definite fracture is seen for technique. K. Sonny Ramirez MD Neck CT 03/29/17 0000 Signed Impressions: Service Date/Time: Wednesday, March 29, 2017 12:50 - CONCLUSION: 1. A degenerative cervical spine. Otherwise, unremarkable exam. Kb Booth Jr., MD Chest X-Ray 03/28/17 1152 Signed Impressions: Service Date/Time: Tuesday, March 28, 2017 12:31 - CONCLUSION: 1. No acute cardiopulmonary findings. Venkat Hernandez MD Objective Remarks GENERAL: This is a very pleasant 81 yo F, well-nourished, well-developed patient, in no apparent distress. CARDIOVASCULAR: Regular rate and rhythm without murmurs, gallops, or rubs. RESPIRATORY: Clear to auscultation. Breath sounds equal bilaterally. No wheezes , rales, or rhonchi. GASTROINTESTINAL: Abdomen soft, non-tender, nondistended. No hepato-splenomegaly , or palpable masses. No guarding. MUSCULOSKELETAL: Extremities without clubbing, cyanosis, or edema. No joint tenderness, effusion, or edema noted. No calf tenderness. Negative Homans sign bilaterally. NEUROLOGICAL: Awake and alert. Cranial nerves II through XII intact. Motor and sensory grossly within normal limits. Normal speech. A/P Assessment and Plan 81-year-old female with Chest pain rule out CO trops negative. EKG without changes. Patient follows with Dr. Tsai cardio, will consult him for recommendations. Seen byy Dr Tsai cardiology. Plan for cardiac cath on Monday. Patient can be discharged today and to follow up with Dr Tsai in his office on Monday for cardiac cath. Pain is relieved with Nitropaste. Continue Nitropaste every 6 hours Monitor on telemetry Restart home medications Left shoulder pain, and neck pain, presumed radiation of chest pain , however patient had a recent fall, will do XRay of the L shoulder and Neck CT. Xray shoulder reviewed is negative for fracture. CT neck shows degenerative joint disease. To follow up as OP with PCP MUNIR on CKD. Kidney function improving. Monitor kidney function . Gentle hydration . Hold Lasix and lisinopril. Monitor kidney function closely. Supratherapeutic INR 6.3 on admission. trending now, hold coumadin for now, will follow up with Dr Tsai on Monday. The patient is not bleeding. Monitor INR. Hold Coumadin. HOLD COUMADIN (WARFARIN) UNTIL SEEN BY DR TSAI ON MONDAY INR IS ELEVATED Persistent A. fib rate control as this time. Monitor on telemetry. Restart home medications. ? CHF systolic on Lasix. Doesn't appear in exacerbation at this time. Restart home medications. Monitor blood pressure. Monitor electrolytes and kidney , hold Lasix and lisinopril GERD restart PPI Hypothyroidism restart 12 MCG by mouth daily of Synthroid. DVT prophylaxis. Chemoprophylaxis contraindicated at this time agreed to supratherapeutic INR. Patient improved, to follow up as OP with PCP and consultants. HOLD COUMADIN (WARFARIN) UNTIL SEEN BY DR TSAI ON MONDAY INR IS ELEVATED Discharge Planning discharged home with home health in stable condition. To follow-up with primary care doctor and cardiology as outpatient Medications medication reconciliation. HOLD COUMADIN (WARFARIN) UNTIL SEEN BY DR TSAI ON MONDAY INR IS ELEVATED Activity ad ting. Diet healthy heart diet Lucy Morales MD Mar 29, 2017 10:20
--- NOTE | 2017-03-29 10:52 | MB ---
cc: MURRAY TSAI M.D. DATE OF CONSULTATION 03/29/2017 REASON FOR CONSULTATION Chest pain HISTORY OF PRESENT ILLNESS This is a 81-year-old female who is well-known to me. She has a past medical history, hypertension, hyperlipemia and six sinus syndrome Coumadin. The patient presented to [facility] emergency room with a complaint of chest pain radiating to the left arm associated with some nausea. Initial workup included multiple EKG's which were within normal limits. Troponin came back very slightly positive at 0.02. I was consulted for further evaluation and management. The patient's chest pain is much improved since admission. She denies otherwise PND, orthopnea, lower extremity edema or recent weight gain. She also denies presyncope and syncope. ALLERGIES Unknown SOCIAL HISTORY Nonsmoker, nondrinker. FAMILY HISTORY Noncontributory REVIEW OF SYSTEMS HEENT: No complaints of light headedness or dizziness. CARDIOVASCULAR: History of sick sinus syndrome and atrial fibrillation on Coumadin. PULMONARY: No history of asthma or COPD. GASTROINTESTINAL: No gastroesophageal reflux disease or GI bleed, positive for some nausea. : No history of renal failure. The remainder of her review of systems is within normal limits. PHYSICAL EXAM Physical examination showed a blood pressure of 137/88 with a heart rate of 60, respiratory of 12. The patient is afebrile. NECK: Supple with no jugular venous distention. CHEST: Clear to auscultation and percussion. HEART: S1, normal in intensity, S2 single. Regular rate and rhythm. No S3 appreciated. ABDOMEN: Benign. EXTREMITIES: No edema. IMPRESSION 1. Chest pain with a slightly positive troponin of uncertain significance. The patient had acute renal failure with a creatinine of 1.90 with elevated BUN reflecting prerenal azotemia. She is currently on fluids. That could explain the slightly positive troponin. Her EKG's were normal. Currently her chest pain is much improved. 2. No impression of acute coronary syndrome as the patient had recent left heart catheterization which showed normal coronary arteries. 3. Hypertension 4. Hyperlipidemia 5. Sick sinus syndrome on Coumadin with an elevated pro-time. We will hold Coumadin. RECOMMENDATIONS The patient wanted to be discharged home and monitor his symptoms as an outpatient. I instructed her to come back if she has any more chest pain and to see me in the office for followup for possible outpatient ischemic evaluation. There is no impression of acute coronary syndrome at this point. Thank you for this consultation. Murray Tsai MD /CHERELLE /10:32 AM /10:46 AM
[2017-03-29] MEDS: DOCUSATE SODIUM 50 MG/SENNA 8.6 MG TAB PO SCH (11:02)
[2017-03-29] MEDS: SODIUM CHLOR 0.9% 1000 ML INJ 1,000 ML IV SCH (11:03)
--- NOTE | 2017-03-29 12:06 | HHI.DCPOC ---
Discharge Care Plan Goals to Promote Your Health * To prevent worsening of your condition and complications * To maintain your health at the optimal level Directions to Meet Your Goals Take your medications as prescribed Follow your dietary instruction Follow activity as directed Keep your appointments as scheduled Take your immunizations and boosters as scheduled If your symptoms worsen call your PCP, if no PCP go to Urgent Care Center or Emergency Room Smoking is Dangerous to Your Health. Avoid second hand smoke Call the 24-hour hour crisis hotline for domestic abuse at Lucy Morales MD Mar 29, 2017 12:06
--- NOTE | 2017-03-29 12:10 | HHI.FF ---
Face to Face Verification Diagnosis: (1) Low back pain (2) Injury, foot (3) Chest pain (4) Toe fracture, left (5) Neck pain (6) Atrial fibrillation (7) Anticoagulated on Coumadin (8) Supratherapeutic INR Physical Therapy Order: Evaluate and Treat Occupational Therapy Order: Evaluate and Treat Home Health Nursing Order: Medical education Signs/symptoms of disease process Medication education-adverse effect Nursing assessment with vital signs Instructions: CHECK inr EVERY OTHER DAY AND COORDINATE WITH HER PCP AND DR TSAI HER CARDIOLOGY DOCTOR I have seen patient Jenni Patino on 03/29/17. My clinical findings support the need for the requested home health care services because: Ltd mobility - disease progression I certify that my clinical findings support that this patient is homebound because: Post-op weakness Lucy Morales MD Mar 29, 2017 12:10
--- NOTE | 2017-03-29 13:47 | RADRPT ---
EXAM DATE/TIME: 03/29/2017 13:00 [facility] COMPARISON: No previous studies available for comparison. INDICATIONS : Left shoulder pain for 2 days. No known injury. MEDICAL HISTORY : Hypertension. Hypercholesterolemia. Arthritis. GERD. Atrial fibrillation. SURGICAL HISTORY : Hysterectomy. Cholecystectomy. Appendectomy. ENCOUNTER: Subsequent ACUITY: 2 days PAIN SCORE: 7/10 LOCATION: Left shoulder. FINDINGS: No definite fractures, or dislocations are identified. No definite lytic or sclerotic lesion is seen . The glenohumeral joint space is well maintained. Minimal hypertrophic change is seen within the A/ C joint. CONCLUSION: No definite fracture is seen for technique. Miguel A Ramirez MD on March 29, 2017 at 13:45 Board Certified Radiologist. This report was verified electronically.
[2017-03-29 13:50] VITALS: BP 146/81; PULSE 67; RESP 15; TEMP 97.6; O2SAT 99
--- NOTE | 2017-03-29 14:48 | RADRPT ---
EXAM DATE/TIME: 03/29/2017 12:50 [facility] COMPARISON: No previous studies available for comparison. INDICATIONS : Generalized neck pain from fall 3 weeks ago. RADIATION DOSE: 18.73 CTDIvol (mGy) MEDICAL HISTORY : Hypertension. SURGICAL HISTORY : Tonsillectomy. Appendectomy.Cholecystectomy. ENCOUNTER: Initial ACUITY: 3 weeks PAIN SCORE: 3/10 LOCATION: Bilateral neck TECHNIQUE: Volumetric scanning of the neck was performed. Using automated exposure control and adjustment of th e mA and/or kV according to patient size, radiation dose was kept as low as reasonably achievable to obtain optimal diagnostic quality images. DICOM format image data is available electronically for re view and comparison. FINDINGS: NASOPHARYNX: The nasopharyngeal airway has a normal configuration. No mucosal thickening or mass is seen. OROPHARYNX: The intrinsic muscles of the tongue are symmetric. The tonsillar pillars are intact. The prevertebr al soft tissues are not thickened. LARYNX: The supraglottic, glottic, and infraglottic structures are intact. PARAPHARYNGEAL: The parapharyngeal space is intact. SALIVARY GLANDS: The parotid and submandibular glands are intact. LYMPH NODES: No enlarged or necrotic-appearing nodes. THYROID: Homogeneous enhancement without evidence of nodule. BONES: A degenerative cervical spine. CONCLUSION: 1. A degenerative cervical spine. Otherwise, unremarkable exam. Kb Booth Jr., MD on March 29, 2017 at 14:43 Board Certified Radiologist. This report was verified electronically.
[2017-03-29] MEDS ORDERED: WARFARIN SOD 5 MG TAB PO SCH (16:00)
--- NOTE | 2017-03-29 17:13 | EKG ---
Date Performed: 03/28/2017 Time Performed: 11:55:58 PTAGE: 81 years EKG: ATRIAL FIBRILLATION MARKED LEFT AXIS DEVIATION LOW QRS VOLTAGE IN PRECORDIAL LEADS POSSIBLE RIGHT VENTRICULAR CONDUCTION DELAY POSSIBLE ANTERIOR MYOCARDIAL INFARCTION ABNORMAL ECG Compared to the PREVIOUS TRACING SR no longer present DOCTOR: Peter Valenzuela Interpretating Date/Time 03/29/2017 17:11:43
[2017-03-31] MEDS ORDERED: WARFARIN SOD 2.5 MG TAB PO SCH (16:00)
== END 2017-03-29 16:30 | disposition home or self-care (01) ==
LOC: PHED 11:47 → PHEDA 13:05 → PHEDH 17:12 → PH3A 18:24
PROVIDERS: ADMIT Hospitalist; ATTEND Hospitalist
DX: R07.89 Other chest pain (principal); N17.9 Acute kidney failure, unspecified; K21.9 Gastro-esophageal reflux disease without esophagitis; I49.5 Sick sinus syndrome; E03.9 Hypothyroidism, unspecified; I13.0 Hypertensive heart and chronic kidney disease with heart failure and stage 1 through stage 4 chronic kidney disease, or unspecified chronic kidney disease; I50.30 Unspecified diastolic (congestive) heart failure; N18.9 Chronic kidney disease, unspecified; Z79.899 Other long term (current) drug therapy; Z79.01 Long term (current) use of anticoagulants; R06.02 Shortness of breath; E78.5 Hyperlipidemia, unspecified; E78.00 Pure hypercholesterolemia, unspecified; M54.2 Cervicalgia; M25.512 Pain in left shoulder; Z82.49 Family history of ischemic heart disease and other diseases of the circulatory system
CPT/HCPCS: 70490; 71010; 73030; 80053; 80061; 82550; 83735; 83880; 84484; 85025; 85610; 85730; 93005; 97162; 99285; G0378; G8987; G8988; J7030

== ENCOUNTER → 2017-04-27 | Outpatient (CLI) | payer MEDICARE, BC ==
[~2017-04-27] MED LIST changes: +CALC1TAB87 PO; +MULTTAB67 PO; +OMEGCAP PO; +WARF-18 PO; +WARF-23 PO
[2017-04-27 17:12] LABS: BACTERIA, URINE FEW /hpf; BLOOD, URINE MOD (NEG); GLUCOSE,URINE NEG (NEG); HYALINE CAST, URINE 9 /lpf (RARE); KETONE, URINE NEG (NEG); NITRITE,URINE POS (NEG); PH, URINE 5.5 (5.0-8.5); URINE COLOR YELLOW (YELLW/STRAW)
== END ==
LOC: PLAB 14:57
PROVIDERS: ATTEND Family Medicine
DX: R30.0 Dysuria (principal); R31.9 Hematuria, unspecified
CPT/HCPCS: 81001

== ENCOUNTER → 2017-06-05 | Outpatient (CLI) | payer MEDICARE, BC ==
[2017-06-05 12:22] LABS: BACTERIA, URINE MANY /hpf; BLOOD, URINE MOD (NEG); COMMENT (UR) CULTURE INDICATED; CULTURE IF INDICATED CULTURE INDICATED; GLUCOSE,URINE NEG (NEG); HYALINE CAST, URINE 1 /lpf (RARE); KETONE, URINE NEG (NEG); MUCUS URINE FEW /lpf (OCC); NITRITE,URINE NEG (NEG); PH, URINE 5.5 (5.0-8.5); URINE COLOR LIGHT-YELLOW (YELLW/STRAW)
== END ==
LOC: PLAB 08:29
PROVIDERS: ATTEND Family Medicine
DX: M54.5 Low back pain (principal); R25.2 Cramp and spasm; N39.0 Urinary tract infection, site not specified; B96.20 Unspecified Escherichia coli [E. coli] as the cause of diseases classified elsewhere
CPT/HCPCS: 81001; 87077; 87086; 87186

== ENCOUNTER → 2017-07-12 | Outpatient (CLI) | payer MEDICARE, BC ==
[2017-07-12 14:05] LABS: ALBUMIN 3.9 GM/DL (3.4-5.0); AST (GOT) 43 U/L (15-37); BICARBONATE 27.3 MEQ/L (21.0-32.0); BLOOD UREA NITROGEN 26 MG/DL (7-18); CALCIUM 9.4 MG/DL (8.5-10.1); CHLORIDE 103 MEQ/L (98-107); CREATININE 1.32 MG/DL (0.50-1.00); GLOMERULAR FILTRATION RATE 39 ML/MIN (>89); GLUCOSE,FASTING 89 MG/DL (74-99); SODIUM (NA) 139 MEQ/L (136-145)
[2017-07-12 14:07] LABS: ALT (GPT) 25 U/L (10-53); CHOLESTEROL 149 MG/DL (120-200)
[2017-07-12 14:14] LABS: ALKALINE PHOSPHATASE 45 U/L (45-117); CHOLESTEROL/ HDL RATIO 2.98 RATIO; HDL CHOLESTEROL 49.9 MG/DL (40.0-60.0); LDL CHOLESTEROL 69 MG/DL (0-99); TOTAL BILIRUBIN ADULT 0.4 MG/DL (0.2-1.0); TOTAL PROTEIN 7.8 GM/DL (6.4-8.2); TRIGLYCERIDES 153 MG/DL (42-150)
[2017-07-12 20:58] LABS: HEMOGLOBIN A1C 5.9 % (4.3-6.0)
== END ==
LOC: PLAB 07:59
PROVIDERS: ATTEND Family Medicine
DX: R73.9 Hyperglycemia, unspecified (principal); E78.5 Hyperlipidemia, unspecified
CPT/HCPCS: 36415; 80053; 80061; 83036

== ENCOUNTER 2017-10-11 10:10 | Emergency (ER) | payer MEDICARE, BC ==
[~2017-10-11] VITALS: Ht 162.6 cm; Wt 100.5 kg
[~2017-10-11 10:10] MED LIST changes: -OMEP20TA PO; +OMEP20TA93 PO
[2017-10-11 10:13] VITALS: BP 154/88; PULSE 70; RESP 16; TEMP 97.7; O2SAT 98
[2017-10-11] MEDS ORDERED: RANI300T PO (10:57)
--- NOTE | 2017-10-11 11:20 | PD ---
HPI Chief Complaint: Injury Time Seen by Provider: 11:10 Travel History International Travel<30 days: No Contact w/Intl Traveler<30days: No Traveled to known affect area: No History of Present Illness HPI 82-year-old female presents to the ED for evaluation of right knee ankle and foot pain after a fall 3 days ago. Patient states that she tripped over some things but is unsure what. She landed on her knee on "the hard floor." Pain is described as 10 out of 10, throbbing, worsened by ambulation. No alleviating factors reported. She denies numbness, tingling, weakness, giving way. She thinks that she is injured the ankle before but is unsure. She treated at home with ice and elevation with no improvement of symptoms. She's been using a cane to ambulate. She follows with Dr. Martinez, orthopedist. [facility] Past Medical History Hx Anticoagulant Therapy: Yes (COUMADIN) Arthritis: Yes Asthma: No Atrial Fibrillation: Yes Anxiety: Yes Heart Rhythm Problems: No Cancer: No Cardiovascular Problems: Yes (CHOL, A.FIB) High Cholesterol: No COPD: No Diabetes: No Diminished Hearing: No GERD: Yes Glaucoma: Yes Genitourinary: No Hepatitis: No Hiatal Hernia: No Hypertension: Yes Kidney Stones: No Musculoskeletal: Yes Neurologic: No Psychiatric: No Reproductive: No Respiratory: No Immunizations Current: Yes Renal Failure: No Sleep Apnea: Yes Thyroid Disease: Yes PNEUMOCCOCAL Vaccine (Year): 1 ?: Not Menopausal: Yes Past Surgical History Abdominal Surgery: Yes (APPENDECTOPMY) Appendectomy: Yes Cardiac Surgery: No Cholecystectomy: Yes Ear Surgery: No Endocrine Surgery: No Eye Surgery: Yes (BILATERAL CATARACT SURGERY) Genitourinary Surgery: No Gynecologic Surgery: Yes (HYSTECTOMY) Hysterectomy: Yes Neurologic Surgery: No Oral Surgery: Yes (TONSILECTOMY) Thoracic Surgery: No Tonsillectomy: Yes Other Surgery: Yes Social History Alcohol Use: No Tobacco Use: No Substance Use: No Allergies-Medications (Allergen,Severity, Reaction): Coded Allergies: No Known Allergies (Verified Adverse Reaction, Unknown, 10/11/17) Reported Meds & Prescriptions Reported Meds & Active Scripts Active Castor (Hydrocodone-Acetaminophen) 5 Mg-325 Mg Tab 1 Tab PO Q8HR PRN Reported Ranitidine (Ranitidine HCl) 300 Mg Tab 300 Mg PO DAILY Multiple Vitamin 1 Tab 1 Tab PO DAILY Warfarin 2.5 Mg Tab 2.5 Mg PO DAILY Warfarin 5 Mg Tab 5 Mg PO DAILY Calcitriol 0.25 Mcg Cap 0.25 Mcg PO MOTUWETHFR Take 1 capsule (0.25mg) daily Monday through Monday Potassium Chloride 1 Pow Pow 20 Meq PO DAILY Zocor (Simvastatin) 80 Mg Tab 80 Mg PO DAILY Lisinopril 20 Mg Tab 20 Mg PO DAILY Furosemide 20 Mg Tab 20 Mg PO DAILY Align (Lactobacillus Rhamnosus (GG)) 4 Mg Cap 4 Mg PO DAILY Levothyroxine (Levothyroxine Sodium) 112 Mcg Tab 112 Mcg PO DAILY Atenolol 25 Mg Tab 25 Mg PO DAILY Review of Systems Except as stated in HPI: all other systems reviewed are Neg Physical Exam Narrative GENERAL: Well-nourished, well-developed white female in no acute distress. SKIN: Focused skin assessment warm/dry. HEAD: Normocephalic. EYES: No scleral icterus. No injection or drainage. NECK: Supple, trachea midline. No JVD or lymphadenopathy. CARDIOVASCULAR: Regular rate and rhythm without murmurs, gallops, or rubs. RESPIRATORY: Breath sounds equal bilaterally. No accessory muscle use. GASTROINTESTINAL: Abdomen soft, non-tender, nondistended. MUSCULOSKELETAL: No cyanosis, or edema. FOCUSED RIGHT LOWER EXTREMITY EXAM 2+ DP pulse. There is tenderness, ecchymosis and edema of the anterior aspect of the knee. Tender to palpation of the lateral joint line. Pain elicited with valgus stress testing. Anterior drawer testing negative. Patient is able to extend to 0 and flex to approximately 70-80. Flexion elicits pain. Patient has tenderness to palpation of the bilateral malleoli as well as tenderness to palpation of the distal aspect of the forefoot. She is able to wiggle her toes and weakly flex and extend the ankle although this and this elicits pain. Neurovascularly intact distally. BACK: Nontender without obvious deformity. No CVA tenderness. Data Data Last Documented VS Vital Signs Date Time Temp Pulse Resp B/P (MAP) Pulse Ox O2 Delivery O2 Flow Rate FiO2 10/11/17 10:13 97.7 70 16 154/88 (110) 98 Orders Orders Ankle, Complete (Pem3hdw) (10/11/17 11:15) Foot, Limited (2vws) (10/11/17 11:15) Knee, Complete (4vws) (10/11/17 11:15) Ice/Cold Pack (10/11/17 11:15) Tramadol (Ultram) (10/11/17 11:30) ^ Knee Immobilizer (10/11/17 12:52) Ed Discharge Order (10/11/17 12:57) MDM Medical Decision Making Medical Screen Exam Complete: Yes Emergency Medical Condition: Yes Differential Diagnosis Contusion versus internal derangement versus sprain versus fracture versus other Narrative Course 82-year-old female presents to the ED for evaluation of right knee ankle and foot pain after a fall 3 days ago. Patient states that she tripped over some things but is unsure what. She landed on her knee on "the hard floor." She denies numbness, tingling, weakness, giving way. She's been using a cane to ambulate. She follows with Dr. Martinez, orthopedist. Vitals reviewed. Focused right lower extremity exam: 2+ DP pulse. There is tenderness, ecchymosis and edema of the anterior aspect of the knee. Tender to palpation of the lateral joint line. Pain elicited with valgus stress testing. Anterior drawer testing negative. Patient is able to extend to 0 and flex to approximately 70-80. Flexion elicits pain. Patient has tenderness to palpation of the bilateral malleoli as well as tenderness to palpation of the distal aspect of the forefoot. She is able to wiggle her toes and weakly flex and extend the ankle although this and this elicits pain. Neurovascularly intact distally. Ice packs were applied. Patient was administered 50 mg tramadol by mouth. X-rays reveal no acute bony injury. I suspect she has internal derangement of the knee. Knee immobilizer was applied. Patient was prescribed a few doses of tramadol. She is instructed to use a walker or cane when ambulating, follow-up with Dr. Martinez for further evaluation. She indicated understanding of instructions and is agreeable care plan. She is stable and discharged home. Diagnosis Primary Impression: Right ankle pain Qualified Codes: M25.571 - Pain in right ankle and joints of right foot Additional Impressions: Right knee pain Qualified Codes: M25.561 - Pain in right knee Internal derangement of right knee Referrals: Betito Martinez MD Patient Instructions: General Instructions, Knee Immobilizer (ED), Musculoskeletal Pain (ED) Additional Instructions: Rest, ice, elevate the extremity. Apply ice no longer than 10-15 minutes per hour a few times a day. Castor up to 3 times a day as needed for pain. Tonight drive while taking Castor, it can cause drowsiness. Return to normal, gentle activity as tolerated. With a knee immobilizer for long periods of weightbearing. Use the walker or cane while using the knee immobilizer. Follow-up with Dr. Martinez this week. Return to the ED for any urgent or emergent medical condition. Med/Other Pt SpecificInfo: Prescription(s) given Scripts Hydrocodone-Acetaminophen (Castor) 5 Mg-325 Mg Tab 1 TAB PO Q8HR Y for PAIN, #12 TAB 0 Refills Prov: Sonny Rayo MD 10/11/17 Disposition: 01 DISCHARGE HOME Condition: Stable Toyin Rose Oct 11, 2017 11:20
[2017-10-11] MEDS ORDERED: traMADol HCL 50 MG TAB PO ONE (11:30)
--- NOTE | 2017-10-11 11:53 | RADRPT ---
EXAM DATE/TIME: 10/11/2017 11:19 [facility] COMPARISON: No previous studies available for comparison. INDICATIONS : Fall, right lateral ankle pain. MEDICAL HISTORY : None. SURGICAL HISTORY : None. ENCOUNTER: Initial ACUITY: 1 day PAIN SCORE: 9/10 LOCATION: Right lateral ankle FINDINGS: Three view exam was performed of the right ankle. The bony structures are in normal alignment. No e vidence of fracture, dislocation. There is soft tissue swelling. The ankle mortise is intact. Degene rative changes. Moderate plantar calcaneal spur. CONCLUSION: Soft tissue swelling without fracture. Madhu Giang MD on October 11, 2017 at 11:50 Board Certified Radiologist. This report was verified electronically.
--- NOTE | 2017-10-11 11:54 | RADRPT ---
EXAM DATE/TIME: 10/11/2017 11:19 [facility] COMPARISON: No previous studies available for comparison. INDICATIONS : Fall, right lateral foot pain. MEDICAL HISTORY : None. SURGICAL HISTORY : None. ENCOUNTER: Initial ACUITY: 1 day PAIN SCORE: 9/10 LOCATION: Right lateral foot FINDINGS: Two view examination of the right foot demonstrates soft tissue swelling without dislocation or fract ure. Moderate-sized plantar calcaneal spur. Scattered degenerative changes The calcaneus is intact. Bony mineralization is normal. CONCLUSION: 1. Soft tissue and without fracture. Madhu Giang MD on October 11, 2017 at 11:51 Board Certified Radiologist. This report was verified electronically.
--- NOTE | 2017-10-11 11:55 | RADRPT ---
EXAM DATE/TIME: 10/11/2017 11:19 [facility] COMPARISON: No previous studies available for comparison. INDICATIONS : Fall, right knee pain and bruising. MEDICAL HISTORY : None. SURGICAL HISTORY : None. ENCOUNTER: Initial ACUITY: 1 day PAIN SCORE: 9/10 LOCATION: Right knee FINDINGS: Four view examination of the right knee demonstrates no evidence of fracture or dislocation. Degenera tive changes. Soft tissue swelling. The suprapatellar soft tissues have a normal configuration. CONCLUSION: No fracture seen. Madhu Giang MD on October 11, 2017 at 11:52 Board Certified Radiologist. This report was verified electronically.
[2017-10-11] MEDS ORDERED: NORC5TAB PO (12:56)
== END 2017-10-11 13:37 | disposition home or self-care (01) ==
LOC: PHEFT 10:10
DX: M25.571 Pain in right ankle and joints of right foot (principal); M25.561 Pain in right knee; I10 Essential (primary) hypertension; I48.91 Unspecified atrial fibrillation; M19.90 Unspecified osteoarthritis, unspecified site; Z79.01 Long term (current) use of anticoagulants
CPT/HCPCS: 73564; 73610; 73620; 99284

== ENCOUNTER 2018-02-06 15:01 | Emergency (ER) | payer MEDICARE, BC ==
[~2018-02-06] VITALS: Ht 165.1 cm; Wt 103.0 kg
[~2018-02-06 15:01] MED LIST changes: -CALC1TAB87 PO; -HYDR-3533 PO; +NORC5TAB PO; -OMEGCAP PO; -OMEP20TA93 PO; +RANI300T PO
[2018-02-06 15:11] VITALS: PULSE 97; RESP 16; TEMP 98.6; O2SAT 96
[2018-02-06] MEDS ORDERED: WARF-23 PO (15:31)
[2018-02-06] MEDS ORDERED: WARF-18 PO (15:31)
[2018-02-06] MEDS ORDERED: PREVAGEN (15:31)
[2018-02-06] MEDS ORDERED: LISI40TA PO (15:31)
[2018-02-06] MEDS ORDERED: ONDANSETRON ODT 4 MG TAB PO ONE (16:00)
[2018-02-06] MEDS ORDERED: ORPHENADRINE INJ 60 MG/2 ML AMP IM ONE (16:00)
[2018-02-06] MEDS ORDERED: MORPHINE SULFATE 4 MG/ML INJ IM ONE (16:00)
--- NOTE | 2018-02-06 16:03 | PD ---
HPI Chief Complaint: Pain: Acute or Chronic Time Seen by Provider: 15:34 Travel History International Travel<30 days: No Contact w/Intl Traveler<30days: No Traveled to known affect area: No History of Present Illness HPI The patient was seen and examined in the presence of the nurse. This patient complains of pain in the right side of her neck. Started at midnight. No injury. Duration is 16 hours. Severity is moderate. It is worse when she moves her head toward the right. It is not worse when she moves her head toward the left. No fever. She gets significant pain to lightly touch the right side of her neck. No rash. Patient is not having headaches. She has muscular neck pain on the right side. No motor weakness or sensory loss of extremities. No speech slurring. PFSH Past Medical History Hx Anticoagulant Therapy: Yes (COUMADIN) Arthritis: Yes Asthma: No Atrial Fibrillation: Yes Anxiety: Yes Heart Rhythm Problems: No Cancer: No Cardiovascular Problems: Yes (CHOL, A.FIB) High Cholesterol: No COPD: No Diabetes: No Diminished Hearing: No Gastrointestinal Disorders: No GERD: Yes Glaucoma: Yes Genitourinary: No Hepatitis: No Hiatal Hernia: No Hypertension: Yes Kidney Stones: No Medical other: No Musculoskeletal: Yes Neurologic: No Psychiatric: No Reproductive: No Respiratory: No Immunizations Current: Yes Renal Failure: No Sleep Apnea: Yes Thyroid Disease: Yes Tetanus Vaccination: Unknown PNEUMOCCOCAL Vaccine (Year): 1 ?: Not Menopausal: Yes Past Surgical History Abdominal Surgery: Yes (APPENDECTOPMY) Appendectomy: Yes Cardiac Surgery: No Cholecystectomy: Yes Ear Surgery: No Endocrine Surgery: No Eye Surgery: Yes (BILATERAL CATARACT SURGERY) Genitourinary Surgery: No Gynecologic Surgery: Yes (HYSTECTOMY) Hysterectomy: Yes Neurologic Surgery: No Oral Surgery: Yes (TONSILECTOMY) Thoracic Surgery: No Tonsillectomy: Yes Other Surgery: Yes Social History Alcohol Use: No Tobacco Use: No Substance Use: No Allergies-Medications (Allergen,Severity, Reaction): Coded Allergies: No Known Allergies (Verified Adverse Reaction, Unknown, 02/06/18) Reported Meds & Prescriptions Reported Meds & Active Scripts Active Orphenadrine ER 12 HR (Orphenadrine Citrate) 100 Mg Tab 100 Mg PO Q12HR Reported [Prevagen] Unknown Dose Lisinopril 40 Mg Tab 40 Mg PO DAILY Warfarin 5 Mg Tab 5 Mg PO Warfarin 2.5 Mg Tab 2.5 Mg PO MOFR Ranitidine (Ranitidine HCl) 300 Mg Tab 300 Mg PO DAILY Multiple Vitamin 1 Tab 1 Tab PO DAILY Calcitriol 0.25 Mcg Cap 0.25 Mcg PO MOTUWETHFR Take 1 capsule (0.25mg) daily Monday through Monday Potassium Chloride 1 Pow Pow 20 Meq PO DAILY Zocor (Simvastatin) 80 Mg Tab 80 Mg PO DAILY Furosemide 20 Mg Tab 20 Mg PO DAILY Align (Lactobacillus Rhamnosus (GG)) 4 Mg Cap 4 Mg PO DAILY Levothyroxine (Levothyroxine Sodium) 112 Mcg Tab 112 Mcg PO DAILY Atenolol 25 Mg Tab 25 Mg PO DAILY Review of Systems General / Constitutional: No: Fever Eyes: No: Visual changes HENT: Positive: Neck Pain, No: Headaches Cardiovascular: No: Chest Pain or Discomfort Respiratory: No: Shortness of Breath Gastrointestinal: No: Abdominal Pain Genitourinary: No: Dysuria Musculoskeletal: No: Pain Skin: No Rash Neurologic: No: Weakness Psychiatric: No: Depression Endocrine: No: Polydipsia Hematologic/Lymphatic: No: Easy Bruising Physical Exam Narrative GENERAL: Well-nourished, well-developed patient in no apparent distress. SKIN: Focused skin assessment reveals no rash and nodules. Skin is Warm and dry. HEAD: Atraumatic. Normocephalic. EYES: Pupils equal and round. No scleral icterus. No injection or drainage. ENT: No nasal bleeding or discharge. Mucous membranes pink and moist. NECK: Trachea midline. No JVD. No midline tenderness. No bruising or swelling or redness or warmth or fluctuance or drainage. No submental findings. She is very tender to light touch on the right side neck musculature without objective findings. No TMJ or ear or scalp tenderness. No posterior neck tenderness. No anterior neck tenderness. Only on the right side sternocleidomastoid musculature in particular. Kernig's negative CARDIOVASCULAR: Regular rate and rhythm. No murmur appreciated. RESPIRATORY: No accessory muscle use. Clear to auscultation. Breath sounds equal bilaterally. GASTROINTESTINAL: Abdomen soft, non-tender, nondistended. Hepatic and splenic margins not palpable. MUSCULOSKELETAL: No obvious deformities. No clubbing. No cyanosis. No edema. NEUROLOGICAL: Awake and alert. No obvious cranial nerve deficits. Motor grossly within normal limits. Normal speech. PSYCHIATRIC: Appropriate mood and affect; insight and judgment bit reduced, suspected dementia . reports that she is very forgetful Data Data Last Documented VS Vital Signs Date Time Temp Pulse Resp B/P (MAP) Pulse Ox O2 Delivery O2 Flow Rate FiO2 02/06/18 15:17 16 96 Room Air 02/06/18 15:11 98.6 97 Orders Orders Morphine Inj (Morphine Inj) (02/06/18 16:00) Ondansetron Odt (Zofran Odt) (02/06/18 16:00) Orphenadrine Inj (Norflex Inj) (02/06/18 16:00) Basic Metabolic Panel (Bmp) (02/06/18 15:53) Prothrombin Time / Inr (Pt) (02/06/18 15:53) Creatine Kinase (Cpk) (02/06/18 15:53) Labs Laboratory Tests Test 02/06/18 16:00 02/06/18 16:40 Prothrombin Time 21.6 SEC Prothromb Time International Ratio 2.1 RATIO Blood Urea Nitrogen 19 MG/DL Creatinine 1.10 MG/DL Random Glucose 116 MG/DL Calcium Level 9.4 MG/DL Sodium Level 139 MEQ/L Potassium Level 3.9 MEQ/L Chloride Level 106 MEQ/L Carbon Dioxide Level 26.2 MEQ/L Anion Gap 7 MEQ/L Estimat Glomerular Filtration Rate 48 ML/MIN Total Creatine Kinase 138 U/L MDM Medical Decision Making Medical Screen Exam Complete: Yes Emergency Medical Condition: Yes Medical Record Reviewed: Yes Differential Diagnosis Myalgia, myositis, meningitis, tic douloureux, parotitis Narrative Course I have reviewed the patient's electronic medical record. This patient has readily reproducible point tenderness to the right side neck musculature. No meningeal findings. No fever. No clinical suspicion of acute meningitis and I do not think that needs to be ruled out with lumbar puncture. I did give her for symptom relief a low-dose injection of morphine and a dose of Norflex. I am hesitant to give her sedating medication at her age but she needs some relief of symptoms. She does not have any neurologic deficit. I do not see any evidence of bleeding. I will check her INR as she takes Coumadin for A. fib Metabolic profile will be checked to rule out potassium abnormalities as well as CK level Electrolytes are normal and CK is normal INR is 2.1 Patient is improved on recheck I prescribed some Norflex. I have warned her about sedation. She will cut in half if she gets drowsy will call family physician tomorrow for follow-up Diagnosis Primary Impression: Musculoskeletal pain Additional Impression: Myalgia Additional Instructions: The patient was advised to follow up with their physician and return if they worsen. The patient was warned about potential sedation for the medications they will receive on prescription. Med/Other Pt SpecificInfo: Prescription(s) given Scripts Orphenadrine ER 12 HR (Orphenadrine ER 12 HR) 100 Mg Tab 100 MG PO Q12HR for Muscle Spasm, #10 TAB 0 Refills Prov: Salomon Srinivasan MD 02/06/18 Disposition: 01 DISCHARGE HOME Condition: Stable Salomon Srinivasan MD February 06, 2018 16:03
[2018-02-06 16:33] LABS: INTERNATIONAL NORMALIZED RATIO 2.1 RATIO; PROTHROMBIN TIME - PATIENT 21.6 SEC (9.8-11.6)
[2018-02-06 17:11] LABS: BICARBONATE 26.2 MEQ/L (21.0-32.0); CALCIUM 9.4 MG/DL (8.5-10.1)
[2018-02-06 17:14] LABS: CREATININE 1.1 MG/DL (0.50-1.00)
[2018-02-06] MEDS ORDERED: ORPH100T PO (17:26)
[2018-02-06 17:30] VITALS: BP 140/68
== END 2018-02-06 17:58 | disposition home or self-care (01) ==
LOC: PHED 15:01
DX: M79.1 Myalgia (principal); Z79.01 Long term (current) use of anticoagulants; I48.91 Unspecified atrial fibrillation; K21.9 Gastro-esophageal reflux disease without esophagitis; H40.9 Unspecified glaucoma; I10 Essential (primary) hypertension; F41.9 Anxiety disorder, unspecified
CPT/HCPCS: 80048; 82550; 85610; 96372; 99283; J2270; J2360

== ENCOUNTER 2018-03-05 15:29 | Emergency (ER) | payer MEDICARE, BC ==
[~2018-03-05] VITALS: Ht 165.1 cm; Wt 99.6 kg
[~2018-03-05 15:29] MED LIST changes: -LISI-515 PO; +LISI40TA PO; -NORC5TAB PO; +ORPH100T PO; +PREVAGEN
[2018-03-05 15:45] VITALS: BP 180/97; PULSE 84; RESP 16; TEMP 98.6; O2SAT 97
--- NOTE | 2018-03-05 16:44 | PD ---
HPI Chief Complaint: Musculoskeletal Complaint Time Seen by Provider: 15:58 Travel History International Travel<30 days: No Contact w/Intl Traveler<30days: No Traveled to known affect area: No History of Present Illness HPI Patient is an 82-year-old female who was sent to the emergency room by an urgent care center today for evaluation of a "possible" dislocation to the right thumb. Patient reports that she tripped and fell last and landed on her right thumb. Reports that because it was swollen and painful, she went to an urgent care center today for evaluation. Patient was told to come to the emergency room for evaluation as they were concerned for possible thumb dislocation. Patient denies any trauma to the head or neck, no loss of consciousness, patient with no other complaints at this time. PFSH Past Medical History Hx Anticoagulant Therapy: Yes (coumadin) Arthritis: Yes Asthma: No Atrial Fibrillation: Yes Anxiety: Yes Heart Rhythm Problems: No Cancer: No Cardiovascular Problems: Yes (htn on meds, a-fib) High Cholesterol: No COPD: No Diabetes: No Diminished Hearing: No Gastrointestinal Disorders: No GERD: Yes Glaucoma: Yes Genitourinary: No Hepatitis: No Hiatal Hernia: No Hypertension: Yes Kidney Stones: No Musculoskeletal: Yes Neurologic: No Psychiatric: No Reproductive: No Respiratory: No Immunizations Current: Yes Renal Failure: No Sleep Apnea: Yes Thyroid Disease: Yes PNEUMOCCOCAL Vaccine (Year): 1 ?: Not Menopausal: Yes Past Surgical History Abdominal Surgery: Yes (APPENDECTOPMY) Appendectomy: Yes Cardiac Surgery: No Cholecystectomy: Yes Ear Surgery: No Endocrine Surgery: No Eye Surgery: Yes (BILATERAL CATARACT SURGERY) Genitourinary Surgery: No Gynecologic Surgery: Yes (HYSTECTOMY) Hysterectomy: Yes Neurologic Surgery: No Oral Surgery: Yes (TONSILECTOMY) Thoracic Surgery: No Tonsillectomy: Yes Other Surgery: Yes Social History Alcohol Use: No Tobacco Use: No Substance Use: No Allergies-Medications (Allergen,Severity, Reaction): Coded Allergies: No Known Allergies (Verified Adverse Reaction, Unknown, 03/05/18) Reported Meds & Prescriptions Reported Meds & Active Scripts Active Reported Lisinopril 40 Mg Tab 40 Mg PO DAILY Warfarin 5 Mg Tab 5 Mg PO Warfarin 2.5 Mg Tab 2.5 Mg PO MOFR Ranitidine (Ranitidine HCl) 300 Mg Tab 300 Mg PO DAILY Multiple Vitamin 1 Tab 1 Tab PO DAILY Calcitriol 0.25 Mcg Cap 0.25 Mcg PO MOTUWETHFR Take 1 capsule (0.25mg) daily Monday through Monday Potassium Chloride 1 Pow Pow 20 Meq PO DAILY Zocor (Simvastatin) 80 Mg Tab 80 Mg PO DAILY Furosemide 20 Mg Tab 20 Mg PO DAILY Align (Lactobacillus Rhamnosus (GG)) 4 Mg Cap 4 Mg PO DAILY Levothyroxine (Levothyroxine Sodium) 112 Mcg Tab 112 Mcg PO DAILY Atenolol 25 Mg Tab 25 Mg PO DAILY Review of Systems General / Constitutional: No: Fever Eyes: No: Visual changes HENT: No: Headaches Cardiovascular: No: Chest Pain or Discomfort Respiratory: No: Shortness of Breath Gastrointestinal: No: Abdominal Pain Genitourinary: No: Dysuria Musculoskeletal: Positive: Limited ROM (Right thumb), Pain (Right thumb) Skin: No Rash Neurologic: No: Weakness Psychiatric: No: Depression Endocrine: No: Polydipsia Hematologic/Lymphatic: No: Easy Bruising Physical Exam Narrative GENERAL: Well-nourished, well-developed patient. SKIN: Focused skin assessment warm/dry. HEAD: Normocephalic. EYES: No scleral icterus. No injection or drainage. NECK: Supple, trachea midline. No JVD or lymphadenopathy. CARDIOVASCULAR: Regular rate and rhythm without murmurs, gallops, or rubs. RESPIRATORY: Breath sounds equal bilaterally. No accessory muscle use. GASTROINTESTINAL: Abdomen soft, non-tender, nondistended. MUSCULOSKELETAL: No cyanosis, or edema. RUE: Patient with pain and swelling with range of motion to the right thumb, there are no signs of open fracture, normal range of motion to digit #2-5, normal range of motion to right wrist and right shoulder, pulses intact BACK: Nontender without obvious deformity. No CVA tenderness. Data Data Last Documented VS Vital Signs Date Time Temp Pulse Resp B/P (MAP) Pulse Ox O2 Delivery O2 Flow Rate FiO2 03/05/18 18:00 80 16 153/76 (101) 95 Room Air 03/05/18 15:45 98.6 Orders Orders Hand, Complete ([id number]) (03/05/18 ) ^ Splint (03/05/18 18:28) MDM Medical Decision Making Medical Screen Exam Complete: Yes Emergency Medical Condition: Yes Medical Record Reviewed: Yes Interpretation(s) Vital Signs Date Time Temp Pulse Resp B/P (MAP) Pulse Ox O2 Delivery O2 Flow Rate FiO2 03/05/18 15:45 98.6 84 16 180/97 (124 97 Differential Diagnosis Thumb dislocation versus fracture versus arthritis Narrative Course X-ray of her right hand was ordered xray suggestive of avulsion fx of right thumb, patient placed in a cage splint, recommended ice and NSAIDs for pain. She will follow-up with orthopedic surgery and will return to the emergency room as needed. Diagnosis Primary Impression: Avulsion fracture of distal phalanx of finger Qualified Codes: S62.639A - Displaced fracture of distal phalanx of unspecified finger, initial encounter for closed fracture Patient Instructions: General Instructions Additional Instructions: Please provide patient with a copy of her study at discharge Please ice pack over area injury and take ibuprofen or acetaminophen for pain Follow-up with orthopedic surgery, return to the emergency room as needed Disposition: 01 DISCHARGE HOME Condition: Stable Kym Ponce DO Mar 05, 2018 16:44
[2018-03-05 18:00] VITALS: BP 153/76; PULSE 80; RESP 16; O2SAT 95
--- NOTE | 2018-03-05 18:31 | RADRPT ---
EXAM DATE: 03/05/2018 5:10 PM EDT AGE/SEX: 82 years / Female INDICATIONS: Right thumb pain and swelling after fall today. CLINICAL DATA: This is the patient's initial encounter. Patient reports that signs and symptoms have been present for 1 day and indicates a pain score of 8/10. MEDICAL/SURGICAL HISTORY: . No pertinent history. . No pertinent history. COMPARISON: No prior exams available for comparison. FINDINGS: Small avulsion fracture adjacent to the interphalangeal joint. Probable remote injury as well. Modera te osteoarthritis. Soft tissue swelling at the right thumb. CONCLUSION: Small avulsion fracture at the interphalangeal joint of the thumb with overlying soft tissue swelling . Electronically signed by: Dennis Walton MD 03/05/2018 6:30 PM EDT
== END 2018-03-05 18:51 | disposition home or self-care (01) ==
LOC: PHED 15:29
DX: S62.501A Fracture of unspecified phalanx of right thumb, initial encounter for closed fracture (principal); W01.0XXA Fall on same level from slipping, tripping and stumbling without subsequent striking against object, initial encounter; I48.91 Unspecified atrial fibrillation; I10 Essential (primary) hypertension; Z79.01 Long term (current) use of anticoagulants
CPT/HCPCS: 73130; 99283

== ENCOUNTER 2018-03-10 11:35 | Emergency (ER) | payer MEDICARE, BC ==
[~2018-03-10] VITALS: Ht 165.1 cm; Wt 99.3 kg
[~2018-03-10 11:35] MED LIST changes: -ORPH100T PO; -PREVAGEN
[2018-03-10 11:40] VITALS: BP 173/77; PULSE 61; RESP 18; TEMP 97.4; O2SAT 99
--- NOTE | 2018-03-10 12:00 | PD ---
HPI Chief Complaint: Injury Time Seen by Provider: 11:46 Travel History International Travel<30 days: No Contact w/Intl Traveler<30days: No Traveled to known affect area: No History of Present Illness HPI 82 year old female presents to the emergency department for re-evaluation of right thumb pain. Patient was seen here on Monday and was diagnosed with avulsion over the IP joint of the right thumb. She was placed in a cage splint and instructed to follow up with ortho. She states that she has not been able to follow up with ortho. She is no longer wearing the splint. She states the pain is still present, slightly increased. She also states the swelling has increased. Patient states she had erythema to the joint when she was here on Monday and that has actually improved. No fevers or chills. Current pain is 10 /10, worse with movement and palpation. Mild-moderate severity. PFSH Past Medical History Hx Anticoagulant Therapy: Yes (coumadin) Arthritis: Yes Asthma: No Atrial Fibrillation: Yes Anxiety: Yes Heart Rhythm Problems: No Cancer: No Cardiovascular Problems: Yes (htn on meds, a-fib) High Cholesterol: No COPD: No Diabetes: No Diminished Hearing: No Gastrointestinal Disorders: No GERD: Yes Glaucoma: Yes Genitourinary: No Hepatitis: No Hiatal Hernia: No Hypertension: Yes Kidney Stones: No Medical other: No Musculoskeletal: Yes Neurologic: No Psychiatric: No Reproductive: No Respiratory: No Immunizations Current: Yes Renal Failure: No Sleep Apnea: Yes Thyroid Disease: Yes Tetanus Vaccination: Unknown PNEUMOCCOCAL Vaccine (Year): 1 ?: Not Menopausal: Yes Past Surgical History Abdominal Surgery: Yes (APPENDECTOPMY) Appendectomy: Yes Cardiac Surgery: No Cholecystectomy: Yes Ear Surgery: No Endocrine Surgery: No Eye Surgery: Yes (BILATERAL CATARACT SURGERY) Genitourinary Surgery: No Gynecologic Surgery: Yes (HYSTECTOMY) Hysterectomy: Yes Neurologic Surgery: No Oral Surgery: Yes (TONSILECTOMY) Thoracic Surgery: No Tonsillectomy: Yes Other Surgery: Yes Social History Alcohol Use: No Tobacco Use: No Substance Use: No Allergies-Medications (Allergen,Severity, Reaction): Coded Allergies: No Known Allergies (Verified Adverse Reaction, Unknown, 03/10/18) Reported Meds & Prescriptions Reported Meds & Active Scripts Active Reported Lisinopril 40 Mg Tab 40 Mg PO DAILY Warfarin 5 Mg Tab 5 Mg PO Warfarin 2.5 Mg Tab 2.5 Mg PO MOFR Ranitidine (Ranitidine HCl) 300 Mg Tab 300 Mg PO DAILY Multiple Vitamin 1 Tab 1 Tab PO DAILY Calcitriol 0.25 Mcg Cap 0.25 Mcg PO MOTUWETHFR Take 1 capsule (0.25mg) daily Monday through Monday Potassium Chloride 1 Pow Pow 20 Meq PO DAILY Zocor (Simvastatin) 80 Mg Tab 80 Mg PO DAILY Furosemide 20 Mg Tab 20 Mg PO DAILY Align (Lactobacillus Rhamnosus (GG)) 4 Mg Cap 4 Mg PO DAILY Levothyroxine (Levothyroxine Sodium) 112 Mcg Tab 112 Mcg PO DAILY Atenolol 25 Mg Tab 25 Mg PO DAILY Review of Systems Except as stated in HPI: all other systems reviewed are Neg Physical Exam Narrative GENERAL: Well-nourished, well-developed elderly female patient, ambulatory. Afebrile. SKIN: Focused skin assessment warm/dry. Patient has swelling and slight erythema over the IP joint of the right thumb. She has fluctuance to palpation with tenderness. HEAD: Normocephalic. Atraumatic. EYES: No scleral icterus. No injection or drainage. NECK: Supple, trachea midline. No JVD or lymphadenopathy. CARDIOVASCULAR: Regular rate and rhythm without murmurs, gallops, or rubs. RESPIRATORY: Breath sounds equal bilaterally. No accessory muscle use. Lung sounds are clear to auscultation. GASTROINTESTINAL: Abdomen soft, non-tender, nondistended. MUSCULOSKELETAL: No cyanosis, or edema. Patient can slightly flex the IP joint of the right thumb, but has significant decreased ROM on exam. BACK: No obvious deformity. Data Data Last Documented VS Vital Signs Date Time Temp Pulse Resp B/P (MAP) Pulse Ox O2 Delivery O2 Flow Rate FiO2 03/10/18 11:40 97.4 61 18 173/77 (109) 99 Orders Orders Finger ([id number]) (03/10/18 ) Lidocaine 1% Inj (50 Ml) (Xylocaine 1% I (03/10/18 12:45) Lidocaine Pf 1% Inj (Xylocaine-Mpf 1% In (03/10/18 12:37) Sulfamet-Trimeth Ds 800-160 Mg (Bactrim (03/10/18 13:15) Cephalexin (Keflex) (03/10/18 13:15) Acetaminophen (Tylenol) (03/10/18 13:15) Wound Culture And Gram Stain (03/10/18 13:12) Clindamycin (Cleocin) (03/10/18 13:30) [facility] Medical Decision Making Medical Screen Exam Complete: Yes Emergency Medical Condition: Yes Medical Record Reviewed: Yes Interpretation(s) Last Impressions Finger X-Ray 03/10/18 0000 Signed Impressions: CONCLUSION: Degenerative changes with prominent hypertrophic degenerative changes. Differential Diagnosis cellulitis vs. abscess vs. septic joint vs. gouty arthritis vs. fracture vs. dislocation Narrative Course 82 year old female presents to the emergency department for evaluation of continued right thumb pain and increased swelling since being seen on Monday and diagnosed with an avulsion fracture to the IP joint. On exam, it does appear the patient has a small abscess overlying the thumb. X-ray of the right thumb is ordered and pending. X-ray of the right thumb shows degenerative changes. Patient gives verbal consent for incision and drainage. A digital block was completed in 19-gauge needle was used to make a small incision over the area. Patient is given first dose of antibiotics in the emergency department. She will be discharged with a prescription for clindamycin. She is to follow-up with a hand surgeon and will be given an information of her hand surgeon lightning protection installer today. The patient was discharged in stable condition with instructions, including return instructions and follow up instructions. Procedures Procedure Narrative INCISION AND DRAINAGE OF ABSCESS: The area was prepped and was sterilely draped. A digital block with 1% lidocaine was used to anesthetize the area. The area was properly anesthetized. An 18-gauge needle was used to make a puncture wound type incision across the area of the abscess. Cultures were obtained. The abscess was drained an irrigated with normal saline. Sterile dressing applied. Diagnosis Primary Impression: Abscess of finger Qualified Codes: L02.511 - Cutaneous abscess of right hand Referrals: Bre Conner MD call for appointment Patient Instructions: Abscess (ED), Abscess Incision and Drainage (DC), General Instructions Additional Instructions: Take antibiotic as directed until gone. Clean twice daily with soap and water and apply [id number] antibiotic ointment. Keep clean and dry. No swimming or hot tubs until healed. Follow-up with hand surgeon. Dr. Conner is her hand surgeon lightning protection installer today. His information is attached. Return to the emergency department for any acute worsening of symptoms. Med/Other Pt SpecificInfo: Prescription(s) given Scripts Clindamycin (Clindamycin) 300 Mg Cap 600 MG PO Q8H for Infection for 7 Days, #42 CAP 0 Refills Prov: Anita Feliciano 03/10/18 Disposition: 01 DISCHARGE HOME Condition: Stable Anita Feliciano Mar 10, 2018 12:00
--- NOTE | 2018-03-10 12:24 | RADRPT ---
EXAM DATE: 03/10/2018 12:18 PM EDT AGE/SEX: 82 years / Female INDICATIONS: Fall, right thumb pain,pain is increasing in severity CLINICAL DATA: This is the patient's initial encounter. Patient reports that signs and symptoms have been present for 1 week and indicates a pain score of 8/10. MEDICAL/SURGICAL HISTORY: None. None. COMPARISON: No prior exams available for comparison. FINDINGS: Views of the right thumb are obtained. Soft tissue swelling with prominent degenerative hypertrophic changes. No definite fracture. No dislocation. CONCLUSION: Degenerative changes with prominent hypertrophic degenerative changes. Electronically signed by: Madhu Giang MD 03/10/2018 12:23 PM EDT
[2018-03-10] MEDS ORDERED: LIDOCAINE HCL 1% PF 30 ML VIAL ONE (12:37)
[2018-03-10] MEDS ORDERED: LIDOCAINE HCL 1% 50 ML VIAL INFIL ONE (12:45)
[2018-03-10] MEDS ORDERED: ACETAMINOPHEN 325 MG TAB PO ONE (13:15)
[2018-03-10] MEDS ORDERED: CEPHALEXIN MONOHYDRATE 500 MG CAP PO ONE (13:15)
[2018-03-10] MEDS ORDERED: SULFAMETHOXAZOLE-TRIMETHOPRIM DS 800-160 MG TAB PO ONE (13:15)
[2018-03-10] MEDS ORDERED: CLIN300C5 PO (13:19)
[2018-03-10] MEDS ORDERED: CLINDAMYCIN 150 MG CAP PO ONE (13:30)
[2018-03-15] MEDS ORDERED: BACT800T5 PO (00:45)
[2018-03-15] MEDS ORDERED: EC-N375T PO (00:45)
== END 2018-03-10 13:51 | disposition home or self-care (01) ==
LOC: PHEFT 11:35
DX: L02.511 Cutaneous abscess of right hand (principal); I48.91 Unspecified atrial fibrillation; I10 Essential (primary) hypertension; Z79.01 Long term (current) use of anticoagulants
CPT/HCPCS: 10060; 73140; 87070; 87205